=== PATIENT | female | born 1960 | race Caucasian/White ===

== ENCOUNTER 2017-08-28 16:22 | Emergency (ER) | payer BC ==
[2017-08-28 16:49] VITALS: BP 147/78
--- NOTE | 2017-08-28 17:20 | UC ---
Hand/Wrist HPI - HPI Summary HPI Summary: 57 yo female presents with left biceps and forearm pain with movement. She tells me that this pain started about a week ago and has gradually gotten worse. 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 Denies specific injury. Denies numbness or tingling. Has not taken anything OTC for this. - History Of Current Complaint Chief Complaint: UCUpperExtremity Stated Complaint: ARM INJURY WC Time Seen by Provider: 08/28/17 17:19 Hx Obtained From: Patient Onset/Duration: Gradual Onset Severity Initially: Mild Severity Currently: Mild Pain Intensity: 2 Pain Scale Used: 0-10 Numeric - Allergies/Home Medications Allergies/Adverse Reactions: Allergies Allergy/AdvReac Type Severity Reaction Status Date / Time amoxicillin Allergy Vomiting Verified 08/28/17 16:40 Home Medications: Home Medications NK [No Home Medications Reported] 08/28/17 [History Confirmed 08/28/17] PMH/Surg Hx/FS Hx/Imm Hx - Additional Past Medical History Additional PMH: None - Surgical History Surgical History: Yes Surgery Procedure, Year, and Place: tonsils, x2, APPENDECTOMY-2014 - Family History Known Family History: Positive: None - Social History Occupation: Employed Full-time Lives: With Family Alcohol Use: Occasionally Alcohol Amount: 2-3 drinks/ night Substance Use Type: None Smoking Status (MU): Former Smoker When Did the Patient Quit Smoking/Using Tobacco: 2009 - Immunization History Most Recent Influenza Vaccination: 2013 Most Recent Tetanus Shot: "YEARS AGO" Most Recent Pneumonia Vaccination: NONE Review of Systems Constitutional: Negative Skin: Negative Respiratory: Negative Cardiovascular: Negative Neurovascular: Negative Musculoskeletal: Other: - Left biceps pain Neurological: Negative Psychological: Negative All Other Systems Reviewed And Are Negative: Yes Physical Exam - Summary Physical Exam Summary: GENERAL: NAD. WDWN. No pain distress. SKIN: No rashes, sores, lesions, or open wounds. NECK: Supple. Nontender. No lymphadenopathy. CHEST: No accessory muscle use. Breathing comfortably and in no distress. CV: RRR. Without m/r/g. Pulses intact radial and ulnar. MSK: TTP over insertion of biceps tendon at left elbow. 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 No edema or obvious bony deformities. FROM left wrist and thumb. NTTP left wrist or thumb. No laly muscle. NEURO: Alert. Sensations intact hand and all fingers. PSYCH: Age appropriate behavior. Triage Information Reviewed: Yes Vital Signs: Initial Vital Signs Temp 97.5 F 08/28/17 16:44 Pulse 67 08/28/17 16:44 Resp 18 08/28/17 16:44 BP 147/78 08/28/17 16:44 Pulse Ox 100 08/28/17 16:44 Hand/Wrist Course/Dx - Course Course Of Treatment: Suspect biceps tendinitis - advised to apply head, take ibuprofen, and will rx for physical therapy. - Differential Dx/Diagnosis Provider Diagnoses: Biceps tendinitis left Discharge - Sign-Out/Discharge Documenting (check all that apply): Discharge/Admit/Transfer - Discharge Plan Condition: Stable Disposition: HOME Patient Education Materials: Tendinitis (ED) Referrals: Raya Chu MD [Primary Care Provider] - Juan Archer MD [Medical Doctor] - If Needed Additional Instructions: If you develop a fever, shortness of breath, chest pain, new or worsening symptoms - please call your PCP or go to the ED. 1) Rest and Ice your arm as much as possible 2) Please follow up with physical therapy for continue evaluation and treatment 3) May take ibuprofen 600mg every 6-8hours as needed for pain 4) If your symptoms persist or worsen, please call Orthopedics at the number below to schedule a follow up appointment. - Billing Disposition and Condition Condition: STABLE Disposition: HOME
== END 2017-08-28 17:45 | disposition home or self-care (01) ==
LOC: UCEAST 16:22
DX: M75.22 Bicipital tendinitis, left shoulder (principal); Z88.0 Allergy status to penicillin; Z87.891 Personal history of nicotine dependence
CPT/HCPCS: 99212; G0463

== ENCOUNTER 2019-04-04 07:44 | Emergency (ER) | payer BC ==
[2019-04-04 07:56] VITALS: BP 132/73
--- NOTE | 2019-04-04 08:09 | UC ---
Neck Pain HPI - HPI Summary HPI Summary: 59 yo female presents with multiple complaints. She tells me that over the last week she has been having right side and posterior neck pain associated with a headache that wakes her up at night. When she has these headaches, they make her nauseous. Has been happening almost every night for the last week and intermittently throughout the day, but to a lesser degree. She feels better when taking ibuprofen. She does not have any vision changes, dizziness, vomiting, numbness, or tingling. In addition to the above, over the last week she has been feeling more short of breath with activities. She notes that she runs 5 miles everyday, but has not been able and has not felt like it this week. SHIRLEY happens when walking up stairs or hills. She also endorses feeling heart palpitations that seem worse during this time. In addition to the above, she notes that she has "passed out" twice in the last 2 years - both times were while on an airplane. She had a holter monitor placed via her PCP that was normal per pt. Also in addition to the above, over the last year she has had left axilla lymph nodes that come and go in various sizes. Her last mammo was 08/2018 and was normal per pt. No family hx of BRCA, but her son does have a hx of lymphoma. Pt denies any PMHx. Denies chest pain, abdominal pain, vomiting, dysuria, vaginal bleeding/discharge, back pain. No specific injury. - History of Current Complaint Chief Complaint: UCHeadache Stated Complaint: HEADACHE Time Seen by Provider: 04/04/19 08:09 Hx Obtained From: Patient Onset/Duration: Sudden Onset Pain Intensity: 0 - Allergies/Home Medications Allergies/Adverse Reactions: Allergies Allergy/AdvReac Type Severity Reaction Status Date / Time amoxicillin Allergy Vomiting Verified 04/04/19 09:14 Home Medications: Home Medications Ibuprofen 400 mg PO ONCE 04/04/19 [History Confirmed 04/04/19] PMH/Surg Hx/FS Hx/Imm Hx - Additional Past Medical History Additional PMH: None - Surgical History Surgical History: Yes Surgery Procedure, Year, and Place: tonsils, x2, APPENDECTOMY-2014 - Family History Known Family History: Positive: Other Family History: Son with lymphoma. Father with HLD - Social History Occupation: Employed Full-time Lives: With Family Alcohol Use: Daily Alcohol Amount: 2-3 drinks/ night Substance Use Type: None Smoking Status (MU): Former Smoker When Did the Patient Quit Smoking/Using Tobacco: 2009 - Immunization History Most Recent Influenza Vaccination: 2013 Most Recent Tetanus Shot: "YEARS AGO" Most Recent Pneumonia Vaccination: NONE Review of Systems All Other Systems Reviewed And Are Negative: No Constitutional: Positive: Negative Skin: Positive: Negative Eyes: Positive: Negative ENT: Positive: Negative Respiratory: Positive: Shortness Of Breath Cardiovascular: Positive: Palpitations Gastrointestinal: Positive: Nausea Genitourinary: Positive: Negative Motor: Positive: Negative Neurovascular: Positive: Negative Musculoskeletal: Positive: Other: - Neck pain Neurological: Positive: Headache Psychological: Positive: Negative Physical Exam - Summary Physical Exam Summary: GENERAL: NAD. WDWN. No pain distress. SKIN: No rashes, sores, ulcers, masses, lesions. LEFT AXILLA: medial upper arm with firm 1.0-1.5cm nodule. HEENT: Head: AT/NC. Eyes: PERRLA. EOM intact. Conjunctiva clear without inflammation or discharge. Ears: Hearing grossly normal. TMs intact, no bulging, erythema, or edema. Nose: Nasal mucosa pink and moist. NTTP maxillary and frontal sinus. Throat: Posterior oropharynx without exudates, erythema, or tonsillar enlargement. Uvula midline. NECK: Supple. RIGHT SCM TTP and tight compared to left side. Negative spurlings. Neck pain reproduced with turning and tilting head left. Submandibular right 1.0cm firm immobile lymph node. CHEST: CTAB. No r/r/w. No accessory muscle use. Breathing comfortably and in no distress. CV: RRR. Pulses intact. Brisk cap refill. ABDOMEN: Soft. NTTP. Bowel sounds present MSK: FROM in B/L UEs and LEs with symmetric strength. NEURO: A&Ox3. 3 word recall, remote, recent memory, ability to follow 2-step directions, and attention intact. CN: II: Peripheral de jesus intact. Vision normal. III, IV, : EOMI. No nystagmus. PERRLA. V: Sensations intact and symmetric. Opens mouth and clenches teeth. VII: No facial asymmetry. Forehead wrinkles. Grins, shuts eyes, frowns, puffs cheeks. VIII: Hearing intact to finger rub. IX, X: Swallows and coughs. Uvula midline. XI: Shrugs shoulders. Turns head against resistance. XII: No tongue deviation [id number] are intact. Gait with normal base. Romberg: maintains balance, no pronator drift. Normal speech. No facial drooping. PSYCH: Age appropriate behavior. Triage Information Reviewed: Yes Vital Signs: Initial Vital Signs Temp 98.9 F 04/04/19 07:50 Pulse 80 04/04/19 07:50 Resp 18 04/04/19 07:50 BP 132/73 04/04/19 07:50 Pulse Ox 97 04/04/19 07:50 Vital Signs Reviewed: Yes Neck Pain Course/Dx - Course Course Of Treatment: DDx is quite wide. Her exam, relatively low risk fam hx, and no PMHx are reassuring, but given her symptoms I have recommended she go to the ED for further evaluation. She may be experiencing TIAs with the headaches and nausea that wake her from sleep, or a paroxysmal cardiac arrhythmia causing her SOB/ palpitations. Her submandibular and left axillary lymph nodes could support a viral origin, but no evidence on exam or history to support infectious or strong viral cause -- some form of cancer would be the most prudent concern here , especially given her son's lymphoma. Her mammogram was within the last year and was normal per pt, therefore reassuring. I discussed the above with the pt and she is agreeable to go to the ED for a further workup. - Differential Dx/Diagnosis Provider Diagnosis: Headache, Nausea, Palpitations Discharge ED - Sign-Out/Discharge Documenting (check all that apply): Patient Departure All imaging exams completed and their final reports reviewed: No Studies - Discharge Plan Condition: Stable Disposition: HOME-RECOMMEND TO ED Referrals: Raya Chu MD [Primary Care Provider] - Additional Instructions: Please go to the ER for further evaluation of your headaches, nausea, shortness of breath, and palpitations - Billing Disposition and Condition Condition: STABLE Disposition: Home-Recommend to ED
== END 2019-04-04 08:48 | disposition home health service (06) ==
LOC: UCEAST 07:44
DX: R51 Headache (principal); R11.0 Nausea; R00.2 Palpitations; R06.02 Shortness of breath; M54.2 Cervicalgia; Z88.0 Allergy status to penicillin; Z87.891 Personal history of nicotine dependence
CPT/HCPCS: 99212; G0463

== ENCOUNTER 2019-04-04 09:07 | Emergency (ER) | payer BC ==
--- NOTE | 2019-04-04 09:23 | ED ---
Complex/Multi-Sys Presentation - HPI Summary HPI Summary: 59 year old F arriving via private car from [facility] complains of worsening general malaise, palpitations, shortness of breath, right sided neck stiffness, and intermittent headaches x10 days. States that palpitations are increasingly persistent during the evenings x10 days. Has had Holter monitor for her palpitations in the past with unspecified dx. Also c/o shortness of breath x10 days. Is normally very active. Became short of breath walking up a hill yesterday which is unusual for her. Also c/o right sided neck stiffness x10 days. Also c/o intermittent headaches x10 days for which she has been taking ibuprofen with relief. States that headaches often happen in the middle of the night, patient will take ibuprofen and fall back asleep. No acute numbness or weakness in upper extremities. No chest pain, cough, fever. Symptoms rated 1/10 in severity. Symptoms aggravated by taking a deep breath. Symptoms alleviated by ibuprofen. No pertinent PMHx. No hx DVT. No recent travel outside [place] or long distance travel. Surgical hx appendectomy. - History Of Current Complaint Chief Complaint: EDDysrhythmPalp Time Seen by Provider: 04/04/19 09:19 Hx Obtained From: Patient Onset/Duration: Lasting Days - 10, Still Present Timing: Constant, Intermittent, Lasting: Severity Initially: Mild - 1/10 Aggravating Factor(s): taking a deep breath Alleviating Factor(s): ibuprofen - Allergies/Home Medications Allergies/Adverse Reactions: Allergies Allergy/AdvReac Type Severity Reaction Status Date / Time amoxicillin Allergy Vomiting Verified 04/04/19 09:14 PMH/Surg Hx/FS Hx/Imm Hx Endocrine/Hematology History: Denies: Hx Diabetes, Hx Thyroid Disease Cardiovascular History: Denies: Hx Congestive Heart Failure, Hx Hypertension Respiratory History: Denies: Hx Asthma, Hx Chronic Obstructive Pulmonary Disease (COPD) GI History: Denies: Hx Ulcer History: Denies: Hx Renal Disease Musculoskeletal History: Denies: Hx Osteoporosis Sensory History: Denies: Hx Contacts or Glasses Opthamlomology History: Denies: Hx Contacts or Glasses - Cancer History Hx Chemotherapy: No Hx Radiation Therapy: No - Surgical History Surgery Procedure, Year, and Place: tonsils, x2, APPENDECTOMY-2015 Hx Anesthesia Reactions: No Infectious Disease History: No Infectious Disease History: Denies: Hx Hepatitis, Hx Human Immunodeficiency Virus (HIV), Traveled Outside the [place] in Last 30 Days - Family History Known Family History: Positive: None, Non-Contributory - Social History Alcohol Use: Daily Alcohol Amount: 2-3 drinks/ night Substance Use Type: Reports: None Smoking Status (MU): Former Smoker Review of Systems Positive: Other - general malaise. Negative: Fever Positive: Palpitations. Negative: Chest Pain Positive: Shortness Of Breath. Negative: Cough Positive: Other - right sided neck stiffnses Positive: Headache. Negative: Weakness, Numbness All Other Systems Reviewed And Are Negative: Yes Physical Exam - Summary Physical Exam Summary: Constitutional: Well-developed, Well-nourished, Alert. (-) Distressed Skin: Warm, Dry HENT: Normocephalic; Atraumatic Eyes: Conjunctiva normal Neck: Musculoskeletal ROM normal neck. (-) JVD, (-) Stridor, (-) Nuchal rigidity. R sided paraspinal tenderness Cardio: Rhythm regular, rate normal, Heart sounds normal; Intact distal pulses; Radial pulses are 2+ and symmetric. (-) Murmur Pulmonary/Chest wall: bilateral LL rhonchi. Effort normal. (-) Respiratory distress, (-) Wheezes, (-) Rales Abd: Soft, (-) tenderness, (-) Distension, (-) Guarding, (-) Rebound Musculoskeletal: (-) Edema Lymph: (-) Cervical adenopathy Neuro: Alert, Oriented x3 Psych: Mood and affect Normal Triage Information Reviewed: Yes Vital Signs On Initial Exam: Initial Vitals Temp Pulse Resp BP Pulse Ox 98.5 F 88 18 179/90 95 04/04/19 09:14 04/04/19 09:14 04/04/19 09:14 04/04/19 09:14 04/04/19 09:14 Vital Signs Reviewed: Yes Procedures - Sedation Patient Received Moderate/Deep Sedation with Procedure: No Diagnostics - Vital Signs Vital Signs Temp Pulse Resp BP Pulse Ox 04/04/19 09:14 98.5 F 88 18 179/90 95 - Laboratory Result Diagrams: 04/04/19 09:30 04/04/19 09:30 Lab Statement: Any lab studies that have been ordered have been reviewed, and results considered in the medical decision making process. - Radiology CXR Radiology Interpretation Completed By: Radiologist Summary of Radiographic Findings: BILATERAL CONFLUENT LOWER LOBE CONFLUENT INFILTRATES MOST CONSISTENT WITH PNEUMONIA. IN ADDITION THERE ARE PATCHY NODULAR INFILTRATES IN THE LEFT LUNG LIKELY RELATED TO THE SAME PROCESS ALTHOUGH NEOPLASTIC DISEASE CANNOT BE EXCLUDED. THEREFORE RECOMMEND FOLLOW-UP CHEST X-RAYS TO RESOLUTION. ED PHYSICIAN HAS REVIEWED THIS REPORT. - CT BRAIN CT Interpretation Completed By: Radiologist Summary of CT Findings: NO EVIDENCE FOR ACUTE INTRACRANIAL ABNORMALITY. ED PHYSICIAN HAS REVIEWED THIS REPORT. - EKG 0911 Cardiac Rate: NL - 88 BPM EKG Rhythm: Sinus Rhythm Summary of EKG Findings: An EKG at 09:11 reveals normal sinus rhythm 88 BPM. T wave inversions in V1 which are similar for 2015. ED physician has reviewed and interpreted this EKG. Re-Evaluation - Re-Evaluation First Eval Re-Evaluation Time: 10:39 Comment: d/w patient CXR findings, need for f/u XR. Complex Multi-Symp Course/Dx Course Of Treatment: 59 y/o F w hx palpitations p/w multiple complaints. - patient reporting increasing palpitations, has had a Holter monitor the past was negative. We'll check lites, CBC to rule out anemia, EKG sinus. - Reports dyspnea. Check a chest x-ray, d-dimer to rule out PE as patient is well's low risk. - Reporting increase in headaches at night, patient states is awake woken her from sleep, no trauma or infectious symptoms. We'll check a head CT. Headache was not sudden onset or worst of life, do not suspect subarachnoid hemorrhage. No URI symptoms or infectious symptoms to suggest meningitis. Patient does have some mild right-sided neck pain. No midline tenderness. Head CT done shows no abnormalities. - Age-adjusted d dimer: 261 (cutoff 590). Application of age-adjusted d-dimer is used for patient's age 50 or older with non-high clinical probability of PE. - CXR w pna, given azithromycin. CURB 65 score 0 - Diagnoses Provider Diagnoses: Pneumonia, Headache Discharge ED - Sign-Out/Discharge Documenting (check all that apply): Patient Departure - Discharge Plan Condition: Stable Disposition: HOME Prescriptions: Azithromyxin HANY (NF) [Z-Hany (Zithromax) 250 mg tabs #6] 2 tab PO .TODAY, THEN 1 DAILY #6 tab Patient Education Materials: Community Acquired Pneumonia (ED) Referrals: Raya Chu MD [Primary Care Provider] - Additional Instructions: You were seen in the emergency department for headache and trouble breathing. Your head CT didn't show any abnormalities Your chest x-ray showed pneumonia and possible small nodules. Please take azithromycin for 5 days. Please follow up with her primary care doctor for follow-up chest x-ray. If any studies were not completed at the time of discharge you will be called with the relevant results. Please follow up with your primary care doctor in next 2-3 days and return to emergency department for worsening headaches, trouble breathing, chest pain or concerning symptoms. It was a pleasure taking care of you today. - Billing Disposition and Condition Condition: STABLE Disposition: Home - Attestation Statements Document Initiated by Tania: Yes Documenting Scribe: Ivana Sheikh Provider For Whom Tania is Documenting (Include Credential): Charlotte Gallegos MD Scribe Attestation: Ivana Rees, scribed for Charlotte Gallegos MD on 04/04/19 at 1041. Scribe Documentation Reviewed: Yes Provider Attestation: The documentation as recorded by the Ivana minor accurately reflects the service I personally performed and the decisions made by , Charlotte Gallegos MD Status of Scribe Document: Viewed
[2019-04-04 09:41] LABS: ABS Basophils 0.1 10^3/ul (0-0.2); ABS Eosinophils 0.2 10^3/ul (0-0.6); ABS Lymphocytes 1.1 10^3/ul (1.0-4.8); ABS Monocytes 0.6 10^3/ul (0-0.8); Hematocrit 41 % (35-47); Hemoglobin 13.9 g/dL (12.0-16.0); Lymphocyte % 18.2 %; Mean Corpuscular HGB Conc 34 g/dL (31-36); Mean Corpuscular Hemoglobin 31 pg (27-31); Mean Corpuscular Volume 91 fL (80-97); Mean Platelet Volume 7.5 fL (7.4-10.4); Nucleated Red Blood Cells % 0.1; Platelet Count 322 10^3/uL (150-450); Red Blood Count 4.47 10^6 /uL (3.70-4.87); Red Cell Distribution Width 12 % (10-15)
[2019-04-04 09:56] LABS: Albumin 4.2 g/dL (3.2-5.2); Albumin/Globulin Ratio 1.1 (1-3); BUN/Creatinine Ratio 15.1 (8-20); Calcium 10.2 mg/dL (8.6-10.3); EGFR African American 98.7 (>60); EGFR Non-African American 81.6 (>60); Globulin 3.7 g/dL (2-4); Magnesium 2.1 mg/dL (1.9-2.7); Total Bilirubin 0.5 mg/dL (0.2-1.0); Total Protein 7.9 g/dL (6.4-8.9)
[2019-04-04 10:25] LABS: TSH (Thyroid Stimulating Horm) 1.92 mcIU/mL (0.34-5.60)
[2019-04-04 10:27] LABS: Free T4 0.94 ng/dL (0.61-1.12)
[2019-04-04 11:00] VITALS: BP 154/87
== END 2019-04-04 11:02 | disposition home or self-care (01) ==
LOC: ED 09:07
DX: J18.9 Pneumonia, unspecified organism (principal); R51 Headache; Z87.891 Personal history of nicotine dependence; Z90.89 Acquired absence of other organs; Z88.1 Allergy status to other antibiotic agents
CPT/HCPCS: 36415; 70450; 71046; 80053; 83735; 84439; 84443; 84484; 85025; 85379; 93005; 99283

== ENCOUNTER 2019-04-25 16:36 | Inpatient (IN) | payer BC ==
--- OUTSIDE RECORDS SUMMARY | 2019-04-25 16:49 | XMS REPORT | Continuity of Care Document ---
:1960 External Reference #:[id number] Author Name Oscar Fofana M.D. (transmitted by agent of provider Miriam Ruff ) Address [address] [place] [address] Care Team Providers Name Role Phone Raya Chu MD - Family Care Team Information [employer] [phone] Medicine Problems Active Problems Provider Date Current tear of lateral cartilage AND/OR Brodie aSleh M.D. Onset: 2017 meniscus of knee Derangement of knee Brodie Saleh M.D. Onset: 07/15/2017 Social History Type Date Description Comments Sex Unknown ETOH Use Occasionally consumes alcohol Tobacco Use Start: Unknown End: Patient is a former smoker Unknown Smoking Status Reviewed: 04/25/19 Patient is a former smoker Exercise Type/Frequency Exercises regularly Allergies, Adverse Reactions, Alerts Description No Known Drug Allergies Medications Active Medications SIG Qnty Indications Ordering Provider Date Atovaquone TK 5 ML PO bid Unknown 750mg/5ML For 10 Days Suspension Albuterol Sulfate HFA Inl 2 PFS PO Up Unknown To qid 108(90Base) mcg/Act Aerosol Azithromycin TK 1 T PO D For Unknown 500mg Tablets 7 Days Probiotic 2 by mouth once Unknown Capsules daily Calcium + D3 1 by mouth every Unknown [id number]-Nxcl day Tablets Ibuprofen 200 400-600mg every Unknown 200mg Tablets 6 hours as needed for pain. Immunizations Description No Information Available Vital Signs Date Vital Result Comment 04/25/2019 3:28pm Height 60 inches 5'0" Weight 102.12 lb Heart Rate 103 /min BP Systolic Sitting 130 mmHg BP Diastolic Sitting 70 mmHg Respiratory Rate 14 /min Body Temperature 102.4 F BMI (Body Mass Index) 19.9 kg/m2 07/15/2017 9:52am Height 60 inches 5'0" Weight 105.00 lb BP Systolic 114 mmHg BP Diastolic 64 mmHg Respiratory Rate 18 /min Body Temperature 98.0 F Pain Level 0 BMI (Body Mass Index) 20.5 kg/m2 Results Description No Information Available Procedures Description No Information Available Medical Devices Description No Information Available Encounters Description No Information Available Assessments Date Code Description Provider 04/25/2019 R50.9 Fever, unspecified Oscar Fofana M.D. Plan of Treatment Future Appointment(s):05/09/2019 4:00 pm - Oscar Fofana M.D. at [facility]/2020 - Oscar Fofana M.D.R50.9 Fever , unspecifiedComments:progressive fever and pulmonary infiltrates, O2 Sat 90% RA ; hospital admission for expedited workup including CT chest, BC, sputum Cx, urine Histo Ag, AFB and fungal studiesFollow up:2 weeks Functional Status Description No Information Available Mental Status Description No Information Available Referrals Description No Information Available
--- NOTE | 2019-04-25 17:59 | ED ---
HPI Cardiac - HPI Summary HPI Summary: Pt is a 59 y/o F presenting to the ED with a chief complaint of pneumonia. Pt states shes had pneumonia for the past 3-4 weeks and it has worsened despite being on different antibiotics, including a Z-pack, Doxycycline, and currently Azithromycin. She saw Dr. Kiran today who instructed her to come here. She reports fever, dry cough, ear ache, general myalgias, and nausea. She denies abd pain, diarrhea, or vomiting. - History of Current Complaint Chief Complaint: EDUpperRespComplaint Stated Complaint: FEVER/SOB/DIZZINESS PER PT Time Seen by Provider: 04/25/19 17:49 Hx Obtained From: Patient Onset/Duration: Started Weeks Ago, Still Present Timing: Constant, Lasting Weeks Initial Severity: Mild Current Severity: None Pain Intensity: 0 Pain Scale Used: 0-10 Numeric Aggravating Factor(s): Nothing Alleviating Factor(s): Nothing Associated Signs and Symptoms: Positive: Fever, Nausea, Cough. Negative: Abdominal Pain, Vomiting - Allergy/Home Medications Allergies/Adverse Reactions: Allergies Allergy/AdvReac Type Severity Reaction Status Date / Time amoxicillin Allergy Vomiting Verified 04/25/19 16:42 Home Medications: Home Medications Albuterol HFA INHALER* [Ventolin HFA Inhaler*] 2 puff INH Q6H PRN 04/25/19 [ History Confirmed 04/25/19] Atovaquone* [Mepron*] 5 ml PO BID 04/25/19 [History Confirmed 04/25/19] PMH/Surg Hx/FS Hx/Imm Hx Previously Healthy: Yes Endocrine/Hematology History: Denies: Hx Diabetes, Hx Thyroid Disease Cardiovascular History: Denies: Hx Congestive Heart Failure, Hx Hypertension Respiratory History: Denies: Hx Asthma, Hx Chronic Obstructive Pulmonary Disease (COPD) GI History: Denies: Hx Ulcer History: Denies: Hx Renal Disease Musculoskeletal History: Denies: Hx Osteoporosis Sensory History: Denies: Hx Contacts or Glasses Opthamlomology History: Denies: Hx Contacts or Glasses - Cancer History Hx Chemotherapy: No Hx Radiation Therapy: No - Surgical History Surgery Procedure, Year, and Place: tonsils, x2, APPENDECTOMY-2015 Hx Anesthesia Reactions: No Infectious Disease History: No Infectious Disease History: Denies: Hx Hepatitis, Hx Human Immunodeficiency Virus (HIV), Traveled Outside the [place] in Last 30 Days - Family History Known Family History: Positive: Other - son had hodgkin's lymphoma - Social History Alcohol Use: Daily Alcohol Amount: 2-3 drinks/ night Hx Substance Use: No Substance Use Type: Reports: None Hx Tobacco Use: No Smoking Status (MU): Former Smoker Review of Systems Positive: Fever Positive: Ear Ache Positive: Cough Positive: Nausea. Negative: Abdominal Pain, Vomiting, Diarrhea Positive: Myalgia All Other Systems Reviewed And Are Negative: Yes Physical Exam - Summary Physical Exam Summary: VITAL SIGNS: Reviewed. GENERAL: Patient is a well-developed and nourished female who is lying comfortable in the stretcher. Patient is not in any acute respiratory distress. HEAD AND FACE: No signs of trauma. No ecchymosis, hematomas or skull depressions. No sinus tenderness.. EYES: PERRLA, EOMI x 2, No injected conjunctiva, no nystagmus. EARS: Hearing grossly intact. Ear canals and tympanic membranes are within normal limits. MOUTH: Oropharynx within normal limits. NECK: Supple, trachea is midline, no adenopathy, no JVD, no carotid bruit, no c- spine tenderness, neck with full ROM. CHEST: Symmetric, no tenderness at palpation. LUNGS: Crackles in lungs bilaterally. CVS: Regular rate and rhythm, S1 and S2 present, no murmurs or gallops appreciated. ABDOMEN: Soft, non-tender. No signs of distention. No rebound, no guarding, and no masses palpated. Bowel sounds are normal. EXTREMITIES: FROM in all major joints, no edema, no cyanosis or clubbing. NEURO: Alert and oriented x 3. No acute neurological deficits. Speech is normal and follows commands. SKIN: Dry and warm. Triage Information Reviewed: Yes Vital Signs On Initial Exam: Initial Vitals Temp Pulse Resp BP Pulse Ox 98.9 F 100 17 135/80 92 04/25/19 16:37 04/25/19 16:37 04/25/19 16:37 04/25/19 16:37 04/25/19 16:37 Vital Signs Reviewed: Yes Procedures - Sedation Patient Received Moderate/Deep Sedation with Procedure: No Diagnostics - Vital Signs Vital Signs Temp Pulse Resp BP Pulse Ox 04/25/19 16:37 98.9 F 100 17 135/80 92 - Laboratory Result Diagrams: 04/25/19 18:40 04/25/19 18:40 Lab Statement: Any lab studies that have been ordered have been reviewed, and results considered in the medical decision making process. - CT Chest CT CT Interpretation Completed By: Radiologist Summary of CT Findings: 1. There is bilateral airspace opacity with air bronchograms as well as peripheral patchy regions and ring shaped opacities in the bilateral lungs suspicious for pneumonitis, possible atypical pneumonitis. Differential diagnosis includes atypical etiology such as cryptogenic organizing pneumonia. 2. There is mild mediastinal lymphadenopathy. ED physician has reviewed this report. - EKG 1804 Cardiac Rate: NL - 91bpm EKG Rhythm: Sinus Rhythm ST Segment: Normal Ectopy: None Summary of EKG Findings: EKG at 1804 shows NSR at 91bpm with no ST elevations and nml axis. Dr. Perez has reviewed and interpreted this EKG. Disposition - Course Assessment/Plan: Pt is a 59 y/o F presenting to the ED with a chief complaint of pneumonia. Pt states shes had pneumonia for the past 3-4 weeks and it has worsened despite being on different antibiotics, including a Z-pack, Doxycycline , and currently Azithromycin. She saw Dr. Kiran today who instructed her to come here. She reports fever, dry cough, ear ache, general myalgias, and nausea. She denies abd pain, diarrhea, or vomiting. Hospital recommendations from Dr. Musa I ordered a chest CT without contrast and started the patient given Rocephin. Chest CT IMPRESSION: 1. There is bilateral airspace opacities with air bronchograms as well as. peripheral patchy regions and ring shaped opacities in the bilateral lungs. suspicious for pneumonitis, possible atypical pneumonitis. Differential. diagnosis includes atypical etiology such as cryptogenic organizing pneumonia. 2. There is mild mediastinal lymphadenopathy. I discuss my physical exam and test results with Dr. Johansen from the hospitalist services and she agrees to admit the patient to her services. The patient is hemodynamically stable alert and oriented x 3. - Differential Dx - Cardiopulmonary Differential Diagnoses - Cardiopulmonary: Bronchitis, Influenza, Laryngitis, Lower Resp Infection - Diagnoses Provider Diagnoses: Pneumonia - Physician Notifications Discussed Care Of Patient With: Cristina Johansen Time Discussed With Above Provider: 19:43 Instructed by Provider To: Admit As Inpatient Discharge ED - Sign-Out/Discharge Documenting (check all that apply): Patient Departure - Discharge Plan Condition: Stable Disposition: ADMITTED TO [facility] Referrals: Tanna Castillo MD [Primary Care Provider] - - Billing Disposition and Condition Condition: STABLE Disposition: Admitted to [facility] - Attestation Statements Document Initiated by Raymundoibchyna: Yes Documenting Scribe: Vandana Miles Provider For Whom Tania is Documenting (Include Credential): Jv Perez MD. Scribe Attestation: Vandana Rees, scribed for Jv Perez MD. on 04/25/19 at 2041. Scribe Documentation Reviewed: Yes Provider Attestation: The documentation as recorded by the raymundoibchyna, Vandana Miles accurately reflects the service I personally performed and the decisions made by , Jv Perez MD. Status of Scribe Document: Viewed
[2019-04-25] MEDS ORDERED: cefTRIAXone(*) 1 GM in NS 0.9% 50 ML* 50 ML IVPB ONE (18:27)
[2019-04-25 18:37] LABS: Influenza A Molecular NEGATIVE (Negative); Influenza B Molecular NEGATIVE (Negative)
[2019-04-25 18:38] LABS: Urine Appearance Clear; Urine Bilirubin Negative (Negative); Urine Blood Negative (Negative); Urine Color Yellow; Urine Glucose Negative (Negative); Urine Ketones 1+ (Negative); Urine Nitrite Negative (Negative); Urine Protein Negative (Negative); Urine Specific Gravity 1.011 (1.010-1.030); Urine Urobilinogen Negative (Negative)
[2019-04-25] MEDS ORDERED: cefTRIAXone(*) 1 GM ADVAN/BAG ONE (18:41)
[2019-04-25 18:57] LABS: ABS Eosinophils 0.4 10^3/ul (0-0.6); ABS Lymphocytes 0.9 10^3/ul (1.0-4.8); ABS Monocytes 0.6 10^3/ul (0-0.8); ABS Neutrophils 7.4 10^3/ul (1.5-7.7); Eosinophil % 3.9 %; Hematocrit 37 % (35-47); Hemoglobin 12.6 g/dL (12.0-16.0); Lymphocyte % 9.7 %; Mean Corpuscular HGB Conc 34 g/dL (31-36); Mean Corpuscular Hemoglobin 30 pg (27-31); Mean Corpuscular Volume 88 fL (80-97); Mean Platelet Volume 7.9 fL (7.4-10.4); Platelet Count 374 10^3/uL (150-450); Red Blood Count 4.21 10^6 /uL (3.70-4.87); Red Cell Distribution Width 12 % (10-15); White Blood Count 9.3 10^3/uL (3.5-10.8)
[2019-04-25 19:15] LABS: Albumin 3.4 g/dL (3.2-5.2); BUN/Creatinine Ratio 15.9 (8-20); C Reactive Protein 220.1 mg/L (<8.01); EGFR African American 105.4 (>60); EGFR Non-African American 87.1 (>60); Globulin 3.4 g/dL (2-4); Potassium 3.9 mmol/L (3.5-5.0); Total Bilirubin 0.4 mg/dL (0.2-1.0); Total Protein 6.8 g/dL (6.4-8.9)
[2019-04-25 19:16] LABS: Troponin I 0.01 ng/mL (<0.03)
[2019-04-25 19:23] LABS: Activated Partial Thrombo Time 32.9 seconds (26.0-38.0); Fibrinogen 888.5 mg/dL (110.8-404.3); INR 1.23 (0.82-1.09)
[2019-04-25] MEDS ORDERED: Acetaminophen TAB* 325 MG PO PRN (21:13)
[2019-04-25] MEDS ORDERED: Albuterol HFA INHALER* 8 gm MDI INH PRN (21:16)
[2019-04-25 21:39] LABS: Erythrocyte Sed Rate > 120 mm/Hr (0-29)
[2019-04-25 22:34] LABS: HIV 4th Generation Nonreactive (Nonreactive)
--- NOTE | 2019-04-25 23:42 | HP ---
CC: Dr. Tanna Castillo * HISTORY AND PHYSICAL: DATE OF ADMISSION: 04/25/19 PRIMARY CARE PROVIDER: Tanna Castillo MD ATTENDING PHYSICIAN: Dr. Cristina Johansen * (dictated by RAJINDER Reeder). CHIEF COMPLAINT: Pneumonia. HISTORY OF PRESENT ILLNESS: Ms. Power is a 59-year-old female with a past medical history of Raynaud's, who presented to the ER today with complaints of persistent pneumonia. The patient states that approximately 03/28/19, she started to have palpitations for 4 to 5 days that were worse at night. These subsided and she was left feeling "off" with general malaise. The patient states she typically runs 5 miles per day and does 40 pushups per day, but found herself unable to walk up of a hill without shortness of breath, which was very atypical for her. She then went to her primary care provider on and was diagnosed with pneumonia and prescribed azithromycin for which she completed a 5 day course. After completing the course with no improvement in symptoms, the patient returned to her primary care provider and was tested for Lyme disease and prescribed doxycycline for 2 weeks' duration, which she completed. Her Lyme test returned negative and therefore her primary care provider placed her back on azithromycin 500 mg with the addition of atovaquone. Today, she is on day 4 of this course and she continues to feel poorly with fever T-max of 102.4, chills, sweats, shortness of breath, which is worse with exertion. She reports cough with deep breathing that is mostly dry. She reports a chest tightness with deep breathing. She has had a 5 pound weight loss in 2 weeks, which she attributes to poor appetite and poor p.o. intake; she reports that her taste is "off." She reports lightheadedness at times as well as bilateral leg weakness, aching, stiff neck, and sore left shoulder. She also reports headache. The patient reports recent travel to [place] in September, [place] in December, and travel to [place] in February. No international travel. In the ER, the patient received a full workup including laboratory data. Her CBC was without gross abnormality including negative for leukocytosis. She has a mild hyponatremia, mildly elevated glucose and a C-reactive protein of 220. 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 The hospitalist team was asked to evaluate the patient for admission. PAST MEDICAL HISTORY: Raynaud's. PAST SURGICAL HISTORY: Appendectomy and tonsillectomy, x2. HOME MEDICATIONS: 1. Albuterol HFA inhaler 2 puff inhalation q.6 hours p.r.n. 2. Atovaquone 5 mL p.o. b.i.d. 3. Azithromycin Z-RADHA. DRUG ALLERGIES: AMOXICILLIN. FAMILY HISTORY: The patient has 1 son with diabetes, sarcoidosis, Hodgkin's lymphoma, and a reported autoimmune disease that occurred after chemotherapy for his lymphoma. Father had diabetes type 2. Maternal grandmother with diabetes type 2. No family history of lung disease, cardiovascular disease or CVA. SOCIAL HISTORY: The patient quit smoking approximately 1 year ago, prior to that she smoked 5 to 6 years approximately less than a half pack per day. She drinks 3 alcoholic beverages per night. She is with 2 children. She lives with her spouse. 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 She is relatively healthy and reportedly runs 5 miles per day and does 40 pushups per day. In the event that she is unable to make her own medical decision, she has appointed her Matthew Montes to be her surrogate decision maker. REVIEW OF SYSTEMS: A 14-point review of systems has been performed and all the pertinent positives and negatives are in the HPI. All other systems are negative. PHYSICAL EXAMINATION GENERAL: Ms. Power is a well-developed, well-nourished, average weight, healthy appearing middle-aged white female, who is sitting up in bed. She appears to be in no acute distress. She is breathing comfortably on room air. HEENT: PERRL. EOMI. Visual de jesus are grossly intact. Sclerae are nonicteric without injection. Hearing is grossly intact. Oral mucous membranes are moist. There are no lesions. The pharynx is clear without erythema or exudate. Palate elevates symmetrically. The tongue is at midline. PULMONARY: Symmetrical chest expansion without use of accessory muscles. There are right lower lobe coarse rales otherwise lung de jesus are clear without rhonchi or wheeze. CARDIOVASCULAR: Regular rate and rhythm with S1, S2 present. There are no murmurs, rubs, clicks or gallops. There is no JVD or peripheral edema. ABDOMEN: Flat. Bowel sounds in all quadrants. Soft with mild tenderness to palpation at the left lower quadrant, otherwise nontender. MUSCULOSKELETAL: Full range of motion without pain or deformities. NEURO: The patient is awake. She is alert and oriented x3 with cranial nerves II through XII are grossly intact. She is able to move all of her extremities with a motor strength 5/5 bilaterally in the upper and lower extremities. Power Lineman Technician strength is equal. DIAGNOSTIC STUDIES/LAB DATA: WBC 9.3, hemoglobin 12.6, hematocrit 37, MCV 88. Sodium 131, chloride 95, potassium 3.9, CO2 of 27, BUN 11, creatinine 0.69, glucose 119, lactic 0.9, CRP 220.10. Chest CT, impression: There is bilateral airspace opacity with air bronchograms as well as peripheral patchy regions and ring-shaped opacities in the bilateral lung suspicious for pneumonitis, possible atypical pneumonitis. Differential diagnosis include atypical etiology such as cryptogenic organizing pneumonia. There is mild mediastinal lymphadenopathy. ASSESSMENT AND PLAN: Ms. Power is a 59-year-old female with no significant past medical history, who presented to the ER today with complaints of persistent pneumonia despite multiple courses of antibiotics for the last approximately 4 weeks. She will be admitted for: 1. Persistent pneumonia. The patient has had pneumonia symptoms for approximately 1 month and continues to have cough, fever, chills, sweats, some mild weight loss, despite 2 courses of azithromycin, 2-week course of doxycycline, and 4 days of atovaquone. The patient reports recent travel to [place] and [place]. She will be admitted and placed on ceftriaxone. Dr. Kiran, Infectious Disease, has been consulted. The patient may benefit from a Pulmonology consult as well. Urine will be sent for histoplasmosis, legionella, and Strep pneumo. HIV testing will be performed. Suspicion is that this is infectious in nature due to the patient's elevated CRP of 220. A procalcitonin has been added on today's labs. We will discontinue the patient' s atovaquone and azithromycin. 2. DVT prophylaxis. According to DVT Risk Assessment, the patient's score is 1 , placing her at low risk. She will be started on Lovenox. 3. Code status. Full code. TIME SPENT: Approximately 65 minutes was spent on this admission, greater than half that time was spent [id number] with the patient and her , obtaining history, performing physical, and reviewing the plan. This case has been discussed with my attending Dr. Johansen, who is in agreement with the plan of care. RAJINDER ASKEW [id number]/[facility] #: [id number] VICK
[2019-04-26] MEDS: Enoxaparin(*) 40 MG/0.4 ML SYR SUBCUT SCH ×2 (00:04→21:16)
[2019-04-26 05:46] LABS: Hematocrit 35 % (35-47); Hemoglobin 11.8 g/dL (12.0-16.0); Mean Corpuscular HGB Conc 34 g/dL (31-36); Mean Corpuscular Hemoglobin 30 pg (27-31); Mean Corpuscular Volume 88 fL (80-97); Mean Platelet Volume 7.6 fL (7.4-10.4); Platelet Count 345 10^3/uL (150-450); Red Blood Count 3.93 10^6 /uL (3.70-4.87); Red Cell Distribution Width 12 % (10-15); White Blood Count 8.2 10^3/uL (3.5-10.8)
[2019-04-26 06:08] LABS: ABS Eosinophils 0.6 10^3/ul (0-0.6); ABS Lymphocytes 1.3 10^3/ul (1.0-4.8); ABS Monocytes 0.7 10^3/ul (0-0.8); ABS Neutrophils 5.7 10^3/ul (1.5-7.7); Eosinophil % 6.9 %; Lymphocyte % 15.8 %
[2019-04-26 06:11] LABS: BUN/Creatinine Ratio 17.6 (8-20); Calcium 8.7 mg/dL (8.6-10.3); EGFR African American 107.2 (>60); EGFR Non-African American 88.6 (>60); Potassium 3.9 mmol/L (3.5-5.0)
[2019-04-26] MEDS ORDERED: Influenza VAC *QUAD* 2019-20* 0.5 ML SYRINGE IM ONE (09:00)
[2019-04-26] MEDS ORDERED: NS 0.9% 1000 ML** 1,000 ML IV ONE ×2 (09:55→11:28)
--- NOTE | 2019-04-26 12:24 | ECHO ---
*[facility]* [place] [address] Fax #: [phone] Transthoracic Echocardiogram Patient: Mariela Power : 1960 Study Date: 04/26/2019 Age: 59 Gender: F HR: 86 bpm Height: 60 in /152.4 cm BSA: 1.41 m^2 Weight: 103.8 lb /47.2 kg BMI: 20.3 kg/m^2 *Journalists And Other Writers: * Gema Alonzo RD *Referring Physician: * Etser Rios *Reading Physician: * Jean Morrow MD Indications: SOB. History: Palpitations. Raynaud's Risk factors: Former tobacco use. Conclusions Summary: - Left ventricle: Systolic function is normal. The estimated ejection fraction is 60-65%. Wall motion is normal; there are no regional wall motion abnormalities. - Mitral valve: There is trace regurgitation. - Aortic valve: There is no evidence of stenosis. - Tricuspid valve: There is trace to mild regurgitation. - Pulmonary arteries: Systolic pressure is within the normal range. Study data: Transthoracic echocardiogram. Procedure: Transthoracic echocardiography was performed. Image quality was good. Complete 2D, spectral Doppler, and color flow Doppler. Location: Bedside. Patient status: Inpatient. Patient room number: 420-01. Rhythm: Normal sinus rhythm with PAC's. Findings Left ventricle: The cavity size is normal. Wall thickness is normal. Systolic function is normal. The estimated ejection fraction is 60-65%. Wall motion is normal; there are no regional wall motion abnormalities. Left ventricular diastolic function parameters are normal. Right ventricle: The cavity size is normal. Systolic function is normal. Systolic pressure is within the normal range. Left atrium: The atrium is mildly dilated. Right atrium: The atrium is normal in size. Mitral valve: The leaflets are mildly thickened. There is no evidence of stenosis. There is trace regurgitation. Aortic valve: The valve is trileaflet. The leaflets are mildly thickened. There is no evidence of stenosis. There is trace regurgitation. Tricuspid valve: The leaflets are normal thickness. There is no evidence of stenosis. There is trace to mild regurgitation. Pulmonic valve: Poorly visualized. The leaflets are normal thickness. There is no evidence of stenosis. There is trace regurgitation. Aorta: Aortic root: The aortic root is appears normal. Ascending aorta: The ascending aorta is appears normal. Aortic arch: The aortic arch is appears normal. Pericardium: There is no significant pericardial effusion. Pulmonary arteries: The main pulmonary artery is normal-sized. Systolic pressure is within the normal range. Systemic veins: Inferior vena cava: The vessel is normal in size. There is (>= 50%) respiratory change in the IVC dimension. Measurements Left ventricle Value Ref Aortic valve Value Ref JUAN, LAX 3.8 cm 3.8 - 5.2 Fredi diam, ED 1.6 cm ----- ESD, LAX 2.6 cm 2.2 - 3.5 Peak v, S 1.64 m/sec ----- FS, LAX 32 % 27 - 45 VTI, S 31.4 cm ----- PW, ED, LAX 0.8 cm 0.6 - 0.9 Mean grad, S 6.0 mm Hg ----- FS 32 % 27 - 45 Peak grad, S 11.0 mm Hg ----- PW, ED 0.8 cm 0.6 - 0.9 LVOT/AV, VTI ratio 0.76 ----- E', lat fredi, TDI 11.9 cm/sec >=10.0 E/e', lat fredi, 8 Mitral valve Value Ref TDI Peak E 0.93 m/sec ----- E', med fredi, TDI 10.9 cm/sec >=7.0 Peak A 0.62 m/sec --- -- E/e', med fredi, 8 Decel time 187 ms ----- TDI Peak grad, D 3.4 mm Hg ----- E', avg, TDI 11.4 cm/sec Peak E/A ratio 1.5 ----- E/e', avg, TDI 8 <=14 Pulmonic valve Value Ref LVOT Value Ref Peak v, S 1.44 m/sec ----- Peak maggie, S 1.29 m/sec Peak grad, S 8.0 mm Hg ----- VTI, S 24.0 cm Peak grad, S 7 mm Hg Tricuspid valve Value Ref Mean grad, S 4 mm Hg TR peak v 2.4 m/sec <=2.8 Peak RV-RA grad, S 23 mm Hg ----- Ventricular septum Value Ref IVS, ED 0.9 cm 0.6 - 0.9 Aortic root Value Ref Root diam 2.5 cm <3.7 Right ventricle Value Ref JUAN, LAX 2.8 cm Ascending aorta Value Ref JUAN minor ax, A4C 3.2 cm 1.9 - 3.5 AAo AP diam, S 2.4 cm ----- mid Pressure, S 26 mm Hg Aortic arch Value Ref Arch diam 1.7 cm ----- Left atrium Value Ref AP dim, ES 3.00 cm 2.70 - Decending aorta Value Ref 3.80 Emely peak maggie 1.09 m/sec ----- ML dim, A4C 4.4 cm SI dim, A4C 4.5 cm Pulmonary artery Value Ref Vol/bsa, ES, 1-p 34 ml/m^2 11 - 40 Pressure, S 18.0 mm Hg ----- A4C Vol/bsa, ES, A/L (H) 35 ml/m^2 16 - 34 Inferior vena cava Value Ref Diam 1.2 cm ----- Right atrium Value Ref SI dim, ES 4.5 cm 3.4 - 5.3 ML dim, ES, A4C 3.2 cm 2.6 - 4.4 Estimated RAP 3 mm Hg Legend: (L) and (H) marcelo values outside specified reference range. Prepared and electronically signed by Jean Morrow MD 04/26/2019 12:23
--- NOTE | 2019-04-26 12:27 | PN ---
Subjective Date of Service: 04/26/19 Interval History: Ms. Power states she has mild SOB today and feels fine as long as she does not take a deep breath, which causes chest tightness. She continues to have non- productive cough, general malaise. She denies ill contacts prior to beginning of illness, although reports exposure appx 2 weeks into illness. She reports that last night was first night without night sweats in appx 1.5 weeks; denies fever. No other complaints today. Objective Active Medications: Acetaminophen (Tylenol Tab*) 650 mg PO Q4H PRN PRN Reason: mild to moderate pain Albuterol (Ventolin Hfa Inhaler*) 2 puff INH Q6H PRN PRN Reason: SHORTNESS OF BREATH Enoxaparin Sodium (Lovenox(*)) 40 mg SUBCUT Q24H JOSE LUIS Last Admin: 04/26/19 00:04 Dose: 40 mg Ceftriaxone Sodium 1 gm/ (Sodium Chloride) 50 mls @ 100 mls/hr IVPB Q24H JOSE LUIS Sodium Chloride (Ns 0.9% 1000 Ml) 1,000 mls @ 1,000 mls/hr IV .PER RATE ONE Stop: 04/26/19 12:27 Last Admin: 04/26/19 11:45 Dose: 1,000 mls/hr Vital Signs: Temp Pulse Resp BP Pulse Ox 97.9 F 87 20 102/55 93 04/26/19 15:19 04/26/19 15:19 04/26/19 15:19 04/26/19 15:19 04/26/19 15:19 Oxygen Devices in Use Now: None Appearance: Ms. Power is an average weight middle aged white female who is sitting up in bed. She is breathing comfortably on RA and appears to be in no acute distress. Eyes: No Scleral Icterus, PERRLA Ears/Nose/Mouth/Throat: NL Teeth, Lips, Gums, Clear Oropharnyx, Mucous Membranes Moist Neck: NL Appearance and Movements; NL JVP, Trachea Midline Respiratory: Symmetrical Chest Expansion and Respiratory Effort, - - bibasilar course rales Cardiovascular: NL Sounds; No Murmurs; No JVD, RRR, No Edema Abdominal: NL Sounds; No Tenderness; No Distention, No Hepatosplenomegaly Extremities: No Edema, No Clubbing, Cyanosis Neurological: Alert and Oriented x 3, NL Muscle Strength and Tone Result Diagrams: 04/26/19 05:30 04/26/19 05:30 Microbiology and Other Data: Microbiology 04/26/19 09:30 Legionella Urinary Antigen - Final Urine Negative Legionella Antigen Streptococcus pneumoniae Ag Screen - Final Negative S. pneumo Antigen Assess/Plan/Problems-Billing Assessment: 59 yof PMHx Raynaud's presents with cough, general malaise, intermittent fever, dx with pna 04/04 that did not respond to 2 courses of azithro, 1 course of doxy and atovaquone, found to have b/l infiltrates on CT chest. 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 Discharge when stable.
[2019-04-26] MEDS: methylPREDNISolone SOD 40 MG* 1 ML VIAL IV SCH (12:57)
--- NOTE | 2019-04-26 13:10 | CONS ---
CONSULTATION REPORT: DATE OF CONSULT: 04/26/19 PRIMARY CARE PROVIDER: Dr. Tanna Castillo. PROVIDER REQUESTING CONSULTATION: RAJINDER Reeder CONSULTING SERVICE: Infectious Disease. PROVIDER: Lobo Clay NP ATTENDING PROVIDER: Dr. Oscar Kiran.* (DICTATED BY LOBO CLAY NP) REASON FOR CONSULT: Abnormal chest CT after 1 month of treatment for pneumonia. IMPRESSION: 1. Abnormal chest CT with peripheral patchy opacities bilaterally. Differential includes fungal pneumonia, lung sarcoidosis, lung cancer, autoimmune disorder such as Abeba's disease or Churg-Carmen, septic emboli, community acquired pneumonia either viral or bacterial, or other lung pathology. The patient has received approximately a month's worth of antibiotics outpatient including azithromycin, doxycycline, atovaquone and is now on ceftriaxone. She has been afebrile while in the hospital with the exception of low-grade fever of 100.1 yesterday. She has no leukocytosis. CRP is elevated. Influenza A and B is negative. HIV negative. She reports a dry cough that is mostly nonproductive. She does report traveling to [place] in September and [place] in January. She reports night sweats with fatigue, and shortness of breath with exertion. RECOMMENDATIONS/PLAN: Recommend obtaining a transthoracic echocardiogram to rule out septic emboli. She has blood cultures pending at this time. A sputum culture should be obtained, if she is unable to produce a sputum sample on her own; we can consider an induced sputum. To assist in ruling out Abeba's disease and Churg-Carmen, we will get an ANCA and DOLLY. She should also have histoplasma antigen and cryptococcus antigens. Continue her on ceftriaxone at this time. Recommend considering a pulmonology consult. Further recommendations will be based on the patient's clinical course and further data collected. We will continue to follow along. HISTORY OF PRESENT ILLNESS: Ms. Power is a 59-year-old female with past medical history only significant for Raynaud's, otherwise healthy. She states that her daughter with a toddler visited from [place] approximately 1 month ago. At that time, she was feeling well. The toddler had had a cold. She continued to have fever, chills, some minimal weight loss; was seen by her primary care provider, and diagnosed with pneumonia. She completed 2 courses of azithromycin, 2 weeks of doxycycline and 4 days of atovaquone. She continued not feeling well, having fevers and chills daily with fevers of 101 to 102 for the last 2 weeks with associated night sweats, fatigue and dry cough. She has been taking Motrin for symptom control She continues to have a cough that is mostly dry with deep breaths, and shortness of breath with exertion. She typically runs 5 miles a day, but has been unable to even walk up a hill without shortness of breath. She began feeling worse over the last few weeks with dizziness and nausea more so in the morning that improves throughout the day. She has had a poor appetite, but has been eating and drinking. She also reports over the last week stiff neck and discomfort in her back and shoulder, headache in addition to nausea. She traveled to [place] in September and [place] in January. No other family members with similar symptoms other than her who had had cold around [place] and has recovered from that. Due to her continued symptoms, she presented to the emergency room for further evaluation. While in the emergency room, she had a chest CT showing bilateral airspace opacity with air bronchograms as well as peripheral patchy regions and ring- shaped opacities in bilateral lung suspicious for pneumonitis, possible atypical pneumonitis and mild mediastinal lymphadenopathy. CBC without leukocytosis. Noted to have mild hyponatremia, mildly elevated glucose, and CRP of 220. She had influenza A and B negative. HIV testing was negative. Urinalysis negative. While in the hospital, she continues to have no leukocytosis, and afebrile. She continues to feel unwell. Denies vomiting, diarrhea, constipation, urinary symptoms. Reports an occasional dry cough without sputum production, shortness of breath with exertion, and continues to have night sweats. Most of her other symptoms are starting to improve. She has been receiving IV fluids and IV antibiotics. PAST MEDICAL HISTORY: Raynaud's disease. PAST SURGICAL HISTORY: 1. Status post appendectomy. 2. Status post tonsillectomy. 3. Status post section x2. MEDICATIONS: Home medications: 1. Atovaquone 5 mL by mouth twice daily. 2. Albuterol HFA inhaler 2 puffs inhalation every 6 hours as needed for shortness of breath. 3. Azithromycin 1 tablet by mouth daily. Hospital medications: 1. Acetaminophen 650 mg by mouth every 4 hours as needed for pain. 2. Albuterol HFA inhaler 2 puffs inhalation every 6 hours as needed for shortness of breath. 3. Ceftriaxone 1 g IV every 24 hours. 4. Lovenox 40 mg subcutaneous daily. 5. Normal saline bolus. ALLERGIES: AMOXICILLIN caused vomiting. FAMILY HISTORY: Denies family history of recurrent or resistant infections such as tuberculosis. Denies family history of coronary artery disease. Son with a history of diabetes, Hodgkin's lymphoma, Kawasaki's, and sarcoidosis of the lungs. Father with a history of diabetes and maternal grandmother with a history of diabetes. SOCIAL HISTORY: She drinks 3 alcoholic beverages nightly. She is a former smoker, quitting 1 year ago. She smoked half-a-pack a day for 6 years. Denies recreational drug use. REVIEW OF SYSTEMS: I performed a 10-point review of systems. All the pertinent positives and negatives are mentioned under the history of present illness. The remaining review of systems are negative. PHYSICAL EXAM: Vital Signs: Temperature 99.8, heart rate 90, respiratory rate 18, O2 sat 92% on room air, blood pressure 96/55. General Appearance: The patient is alert, appears to be in no acute distress. Head: Normocephalic, atraumatic. Extraocular movements are intact. No subconjunctival hemorrhage. Moist mucous membranes. Neck is supple. There is no lymphadenopathy. She has no nuchal rigidity. Neurological: Alert and oriented x4. Cranial nerves II through XII are grossly intact. Cardiovascular: Regular rate and rhythm. S1 and S2 present. No murmurs, rubs, or gallops heard. Respiratory: There is no accessory muscle use. The lungs are clear to auscultation bilaterally. Abdomen : Bowel sounds present. Abdomen is soft, nontender, nondistended. Extremities : No lower extremity edema. DP and PT pulses are 2+ and symmetric. Musculoskeletal: No clubbing or cyanosis noted. She exhibits good strength in all extremities. No tenderness with palpation of the neck, back, or spine. She has no swollen or painful joints with movement. Psychological: Calm and cooperative. Skin: No rashes or abnormalities seen. DIAGNOSTIC STUDIES/LAB DATA: Sodium 133, potassium 3.9, chloride 98, CO2 of 26 , BUN 12, creatinine 0.68, glucose 117. White blood cell count 8.2, hemoglobin 11.8, hematocrit 35, platelet count 345. ESR at admission was greater than 120 and CRP 220.10. Influenza A and B negative. HIV negative. Urinalysis negative. Please see impression and recommendations outlined above. Recommendations have been discussed with RAJINDER Reeder. Thank you for asking us to see Ms. Power in consultation. The case has been discussed with my attending, Dr. Oscar Kiran, who agrees with the plan of care. Reviewed by ADOLFO ZAPATA 04/30/19 1237 [id number]/[facility] #: [id number] VICK
--- NOTE | 2019-04-26 15:07 | CONS ---
PULMONARY CONSULTATION REPORT: DATE OF CONSULT: 04/26/19 REQUESTED BY: RAJINDER Reeder. REASON FOR CONSULT: Evaluation of abnormal CT chest. HISTORY OF PRESENT ILLNESS: The patient is a 59-year-old female, former smoker , quit about a year ago. The patient presents for evaluation of shortness of breath. The patient has been evaluated for pneumonia recently. Around 03/28/19 , the patient started having palpitations for 4 to 5 days, worse at night. She was having generalized malaise. The patient usually is active and runs 5 miles and does 40 push-ups per day, which she was not able to do around that time. She went to primary care provider on 04/04/19 and was diagnosed with pneumonia and prescribed azithromycin, which she took a 5-day course. She did not have any improvement in symptoms, returned to the PCP and was tested for Lyme and was prescribed doxycycline for 2 weeks' duration. Her Lyme test was negative and therefore doxycycline was stopped, and azithromycin was continued for additional few days to have a 7-day course. She started feeling poorly with a fever of 102.4, chills, worsening shortness of breath, and dry cough and decided to come into the ED for further evaluation. The patient also reports inability to take deep breath and feels a tightness in the chest while taking deep breath. She also had a 5- pound weight loss in the past 2 weeks secondary to poor appetite. Also reports lightheadedness, bilateral leg weakness, aching , stiffness, and then soreness in the left shoulder, reports headache. The patient had traveled to [place] in September 2018, [place] in December 2018, and traveled to [place] in February 2019. The patient also reports having some construction happening in the house, which is a very old house from 1799s. The patient, however, reports no mold or fungal exposure. The patient had further evaluation in the ED, which included CBC which did not show significant leukocytosis. She was noted to have mild hyponatremia. CRP was elevated. She also had a chest x-ray and CT scan of the chest. I personally reviewed with the patient and her today - the patient noted to have multiple round opacities bilaterally with some central clearing and with some ring shaped opacities due to the central clearing. She is noted to have dense opacification or consolidation in the lower parts of the lungs bilaterally. These opacities are mostly peripheral. Mild lymphadenopathy was noted, no pleural effusion was noted. PAST MEDICAL HISTORY: Raynaud's. PAST SURGICAL HISTORY: Appendectomy, tonsillectomy, x2. HOME MEDICATIONS: 1. Albuterol. 2. Levaquin. 3. Azithromycin. DRUG ALLERGIES: AMOXICILLIN. FAMILY HISTORY: One son with diabetes, sarcoidosis, Hodgkin lymphoma, and autoimmune disease that occurred after chemotherapy for lymphoma. Father has type 2 diabetes, maternal grandmother with diabetes. No family history of lung disease, cardiovascular disease, or CVA. SOCIAL HISTORY: The patient quit smoking 1 year ago, smoked for 5 to 6 years and approximately less than a half per day. She drinks 3 alcoholic beverages per night. 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 REVIEW OF SYSTEMS: All 14 systems reviewed and as per HPI. PHYSICAL EXAM: The patient in mild distress secondary to shortness of breath. Vital Signs: Temperature 99.5, pulse 78 beats per minute, respiratory 18 per minute, O2 sat 95% on room air, blood pressure 99/54. HEENT: Pupils equal, reactive to light. Mucous membranes moist. Lungs: Diminished. Air entry bilaterally. Rhonchi present, some crackles at bases posteriorly. Cardiovascular: S1, S2 present. Abdomen: Soft, nontender, nondistended. Bowel sounds present. Extremities: Normal range of motion. Skin: No rash or bruise. DIAGNOSTIC STUDIES/LAB DATA: WBC count 8.2, hemoglobin 11.8, hematocrit 35, platelet count 345. Sodium 133, potassium 3.9, chloride 98, bicarb 26, BUN 12, creatinine 0.68. Lactic acid within normal limits. CRP is elevated at 220. Influenza A and B are negative. HIV nonreactive CT scan of the chest as described above in HPI. Echocardiogram did not reveal any evidence of valvular vegetations. Systolic function is normal. IMPRESSION/RECOMMENDATION: 59-year-old female with no other past medical history other than Raynaud's, family history of sarcoidosis and lymphoma, presents with worsening shortness of breath and after failing outpatient treatment for pneumonia. The patient also with high fevers. Family members with viral syndrome, monocytosis infection. The patient also with recent travel to areas with endemic fungi. Differential is broad in her case but I think it is most likely to be cryptogenic organizing pneumonia or bronchiolitis obliterans with organizing pneumonia given radiological findings. Fungal pneumonia is still in the differential. She is currently not on antibiotics, was started on azithromycin. She was seen by infectious disease specialist. I would start the patient on Solu-Medrol for management of her cryptogenic organizing pneumonia. Thank you for allowing me to participate in care of your patient. Will follow up with you. I do not think the patient needs bronchoscopy at this time. [id number]/[facility] #: [id number] VICK
[2019-04-26] MEDS: cefTRIAXone(*) 1 GM in NS 0.9% 50 ML* 50 ML IVPB SCH (18:19)
[2019-04-26] MEDS: guaiFENesin ER TAB 600 MG PO SCH (21:16)
[2019-04-27] MEDS: methylPREDNISolone SOD 40 MG* 1 ML VIAL IV SCH ×2 (01:00→12:52)
[2019-04-27] MEDS ORDERED: NS 0.9% 250 ML* 250 ML IV ONE (07:46)
[2019-04-27] MEDS: guaiFENesin ER TAB 600 MG PO SCH ×2 (08:05→21:44)
[2019-04-27] MEDS ORDERED: NS 0.9% 1000 ML** 1,000 ML IV SCH (10:45)
--- NOTE | 2019-04-27 11:02 | PN ---
Progress Note - Progress Note Date of Service: 04/27/19 SOAP: Subjective: CC: Abnormal chest CT. HPI: Ms. Power is a 59 yo female with no significant PMH. Denies fever, chills , nausea, vomiting, or diarrhea. Low grade fever yesterday. She reports continued shortness of breath with exertion, she was noted to be hypoxic with ambulation this AM. She is eating and drinking well. Objective: Vital Signs - 8 hr 04/27/19 04/27/19 04/27/19 03:03 07:15 08:00 Temperature 97.3 F 97.5 F Pulse Rate 74 75 Respiratory 20 18 16 Rate Blood Pressure 121/60 92/54 (mmHg) O2 Sat by Pulse 95 92 92 Oximetry 04/27/19 04/27/19 04/27/19 09:12 10:39 10:48 Temperature Pulse Rate 80 Respiratory Rate Blood Pressure 104/58 (mmHg) O2 Sat by Pulse 92 84 91 Oximetry Physical Exam: General: NAD, sitting up in bed Neurological: Alert and Oriented x4 HEENT: Moist MM, no thrush Cardiovascular: Heart rate regular Respiratory: Lung sounds clear in upper lobes and fine crackles in the bases Abdominal: Bowel sounds present; ABD soft, non tender and non distended Skin: No rash Laboratory Last Values WBC 8.2 10^3/uL (3.5-10.8) 04/26/19 05:30 RBC 3.93 10^6 /uL (3.70-4.87) 04/26/19 05:30 Hgb 11.8 g/dL (12.0-16.0) L 04/26/19 05:30 Hct 35 % (35-47) 04/26/19 05:30 MCV 88 fL (80-97) 04/26/19 05:30 MCH 30 pg (27-31) 04/26/19 05:30 MCHC 34 g/dL (31-36) 04/26/19 05:30 RDW 12 % (10-15) 04/26/19 05:30 Plt Count 345 10^3/uL (150-450) 04/26/19 05:30 MPV 7.6 fL (7.4-10.4) 04/26/19 05:30 Neut % (Auto) 68.6 % 04/26/19 05:30 Lymph % (Auto) 15.8 % 04/26/19 05:30 [place] % (Auto) 8.4 % 04/26/19 05:30 Eos % (Auto) 6.9 % 04/26/19 05:30 Baso % (Auto) 0.3 % 04/26/19 05:30 Absolute Neuts (auto) 5.7 10^3/ul (1.5-7.7) 04/26/19 05:30 Absolute Lymphs (auto) 1.3 10^3/ul (1.0-4.8) 04/26/19 05:30 Absolute Monos (auto) 0.7 10^3/ul (0-0.8) 04/26/19 05:30 Absolute Eos (auto) 0.6 10^3/ul (0-0.6) 04/26/19 05:30 Absolute Basos (auto) 0.0 10^3/ul (0-0.2) 04/26/19 05:30 Absolute Nucleated RBC 0.0 10^3/ul 04/26/19 05:30 Nucleated RBC % 0.0 04/26/19 05:30 ESR > 120 mm/Hr (0-29) H 04/25/19 18:40 INR (Anticoag Therapy) 1.23 (0.82-1.09) H 04/25/19 18:40 APTT 32.9 seconds (26.0-38.0) 04/25/19 18:40 Fibrinogen 888.5 mg/dL (110.8-404.3) H 04/25/19 18:40 Sodium 133 mmol/L (135-145) L 04/26/19 05:30 Potassium 3.9 mmol/L (3.5-5.0) 04/26/19 05:30 Chloride 98 mmol/L (101-111) L 04/26/19 05:30 Carbon Dioxide 26 mmol/L (22-32) 04/26/19 05:30 Anion Gap 9 mmol/L (2-11) 04/26/19 05:30 BUN 12 mg/dL (6-24) 04/26/19 05:30 Creatinine 0.68 mg/dL (0.51-0.95) 04/26/19 05:30 Est GFR ( Amer) 107.2 (>60) 04/26/19 05:30 Est GFR (Non-Af Amer) 88.6 (>60) 04/26/19 05:30 BUN/Creatinine Ratio 17.6 (8-20) 04/26/19 05:30 Glucose 117 mg/dL (70-100) H 04/26/19 05:30 Lactic Acid 0.8 mmol/L (0.5-2.0) 04/25/19 21:34 Calcium 8.7 mg/dL (8.6-10.3) 04/26/19 05:30 Total Bilirubin 0.40 mg/dL (0.2-1.0) 04/25/19 18:40 AST 17 U/L (13-39) 04/25/19 18:40 ALT 16 U/L (7-52) 04/25/19 18:40 Alkaline Phosphatase 97 U/L (34-104) 04/25/19 18:40 Total Creatine Kinase 34 U/L (10-223) 04/25/19 18:40 Troponin I 0.01 ng/mL (<0.03) 04/25/19 18:40 C-Reactive Protein 220.10 mg/L (<8.01) H 04/25/19 18:40 B-Natriuretic Peptide 27 pg/mL (<=100) 04/25/19 18:40 Total Protein 6.8 g/dL (6.4-8.9) 04/25/19 18:40 Albumin 3.4 g/dL (3.2-5.2) 04/25/19 18:40 Globulin 3.4 g/dL (2-4) 04/25/19 18:40 Albumin/Globulin Ratio 1.0 (1-3) 04/25/19 18:40 Urine Color Yellow 04/25/19 18:00 Urine Appearance Clear 04/25/19 18:00 Urine pH 5.0 (5-9) 04/25/19 18:00 Ur Specific [place] 1.011 (1.010-1.030) 04/25/19 18:00 Urine Protein Negative (Negative) 04/25/19 18:00 Urine Ketones 1+ (Negative) A 04/25/19 18:00 Urine Blood Negative (Negative) 04/25/19 18:00 Urine Nitrate Negative (Negative) 04/25/19 18:00 Urine Bilirubin Negative (Negative) 04/25/19 18:00 Urine Urobilinogen Negative (Negative) 04/25/19 18:00 Ur Leukocyte Esterase Negative (Negative) 04/25/19 18:00 Urine Glucose Negative (Negative) 04/25/19 18:00 HIV 1&2 Ab/P24 Ag 4thGn Nonreactive (Nonreactive) 04/25/19 21:34 Influenza A (Rapid) Negative (Negative) 04/25/19 18:10 Influenza B (Rapid) Negative (Negative) 04/25/19 18:10 Microbiology 04/25/19 18:40 Aerobic Blood Culture - Preliminary Blood Venous No Growth Day 1 Anaerobic Blood Culture - Preliminary No Growth Day 1 04/25/19 18:40 Aerobic Blood Culture - Preliminary Blood Venous No Growth Day 1 Anaerobic Blood Culture - Preliminary No Growth Day 1 04/26/19 09:30 Legionella Urinary Antigen - Final Urine Negative Legionella Antigen Streptococcus pneumoniae Ag Screen - Final Negative S. pneumo Antigen Assessment: 1. Abnormal chest CT. Afebrile, no leukocytosis, elevated CRP. Urine antigens for S. pneumo and legionellla negative. Has not been able to produce a sputum sample. HIV negative. Broad differential at this time, includes: pneumonia, SOCIAL MEDIA MARKETER/ BOOP, septic emboli, fungal PNA, autoimmune lung disease, and malignancy. Low suspicion for septic emboli as she is not bacteremic, TTE with no signs of vegetation. She was started on steroids yesterday, repots some improvement in symptoms. HIV negative, low suspicion for pneumocystis PNA. Plan: Continue ceftriaxone for now. Recommend monitoring her for another day in the setting of hypoxia and shortness of breath with ambulation this morning. Will order an induced sputum. Will also get a CRP in the morning.
--- NOTE | 2019-04-27 12:11 | PN ---
Subjective Date of Service: 04/27/19 Interval History: Ms. Power states she is feeling better today. She reports night sweats x2 overnight, but no fevers. She c/o dizziness, lightheadedness, but notes that this has improved since fluid administration. She continues to have a cough. She has no other complaints to today. The patient later went for a walk around the unit and became hypoxic into the 80 's, requiring oxygen. She is currently resting on 2L O2. Objective Active Medications: Acetaminophen (Tylenol Tab*) 650 mg PO Q4H PRN PRN Reason: mild to moderate pain Albuterol (Ventolin Hfa Inhaler*) 2 puff INH Q6H PRN PRN Reason: SHORTNESS OF BREATH Enoxaparin Sodium (Lovenox(*)) 40 mg SUBCUT Q24H [facility] Last Admin: 04/26/19 21:16 Dose: 40 mg Guaifenesin (Mucinex*) 600 mg PO BID [facility] Last Admin: 04/27/19 08:05 Dose: 600 mg Ceftriaxone Sodium 1 gm/ (Sodium Chloride) 50 mls @ 100 mls/hr IVPB Q24H [facility] Last Admin: 04/26/19 18:19 Dose: 100 mls/hr Sodium Chloride (Ns 0.9% 1000 Ml) 1,000 mls @ 125 mls/hr IV PER RATE [facility] Stop: 04/28/19 18:44 Last Admin: 04/27/19 10:59 Dose: 125 mls/hr Methylprednisolone Sodium Succinate (Solu-Medrol 40 Mg) 40 mg IV Q12H [facility] Last Admin: 04/27/19 01:00 Dose: 40 mg Vital Signs: Temp Pulse Resp BP Pulse Ox 97.7 F 75 22 108/62 94 04/27/19 11:11 04/27/19 11:11 04/27/19 11:11 04/27/19 11:11 04/27/19 11:11 Oxygen Devices in Use Now: None Appearance: Ms. Power is an average weight, middle-aged female who is sitting up in bed. She is breathing comfortably on room air and appears to be in no acute distress. Result Diagrams: 04/26/19 05:30 04/26/19 05:30 Microbiology and Other Data: Microbiology 04/26/19 09:30 Legionella Urinary Antigen - Final Urine Negative Legionella Antigen Streptococcus pneumoniae Ag Screen - Final Negative S. pneumo Antigen Assess/Plan/Problems-Billing Assessment: 59 yof PMHx Raynaud's presents with cough, general malaise, intermittent fever, dx with pna 04/04 that did not respond to 2 courses of azithro, 1 course of doxy and atovaquone, found to have b/l infiltrates on CT chest. 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 Discharge when stable.
[2019-04-27 16:52] LABS: Procalcitonin, S <0.10 ng/mL (<=0.15)
[2019-04-27] MEDS: cefTRIAXone(*) 1 GM in NS 0.9% 50 ML* 50 ML IVPB SCH (18:31)
[2019-04-27] MEDS: Enoxaparin(*) 40 MG/0.4 ML SYR SUBCUT SCH (21:45)
[2019-04-28] MEDS: methylPREDNISolone SOD 40 MG* 1 ML VIAL IV SCH ×3 (05:48→17:19)
[2019-04-28] MEDS: guaiFENesin ER TAB 600 MG PO SCH ×2 (09:45→20:21)
--- NOTE | 2019-04-28 09:46 | PN ---
Progress Note - Progress Note Date of Service: 04/28/19 SOAP: Subjective: CC: shortness of breath HPI:59 year old woman with 6 weeks dyspnea, cough, fever, pulmonary infiltrates. Energy, dyspnea, cough improving. No fever, rash, or diarrhea. Appetite ok. Desaturated with walking yesterday. Objective: Vital Signs Temp 36.6 C 04/28/19 07:15 Pulse 70 04/28/19 07:15 Resp 22 04/28/19 07:15 BP 123/71 04/28/19 07:15 Pulse Ox 98 04/28/19 07:15 Intake & Output 04/27/19 04/28/19 04/28/19 18:59 06:59 18:59 Intake Total 2120 1999 Output Total 1550 1500 Balance 570 500 Intake: IV Fluids 380 2000 NS 380 1999 Oral 1740 0 Output: Urine 1550 1500 Other: # Voids 2 Gen:awake, no distress HEENT: no thrush Heart:regular, no murmur Lungs:Clear no egophany or wheeze Abd:+BS NT ND soft Skin: no rash Laboratory Results - last 24 hr 04/25/19 04/26/19 04/28/19 21:35 05:30 06:13 C-Reactive Protein 71.89 H Procalcitonin <0.10 Anti-Nuclear Antibody 0.3 Proteinase 3 (PR3) < 0.2 Myeloperoxidase Ab < 0.2 Assessment: 1. chronic pneumonia, immunocompetent . ANCA and DOLLY negative. 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 Hypoxemia 3. PCN allergy Plan: 1. DC ceftriaxone, continue corticosteroids, follow O2 sat with ambulation today. We discussed that if not continued improvement that needle biopsy is a possibility which seems less likely that it will be needed as she is improving. 35 minutes floor time >50% face to face discussing possible diagnoses and next steps
--- NOTE | 2019-04-28 13:37 | PN ---
Subjective Date of Service: 04/28/19 Interval History: Ms. Power reports an episode of anxiety today that lead to feelings of hyperventilation. She states that deep breathing and supplemental oxygen helped. She reports mild dizziness this morning, but this has since subsided and is less severe than last 2 days. She denies fever, night sweats; she c/o difficulty with sleep last night, but unsure why. She has no other complaints today. Objective Active Medications: Acetaminophen (Tylenol Tab*) 650 mg PO Q4H PRN PRN Reason: mild to moderate pain Albuterol (Ventolin Hfa Inhaler*) 2 puff INH Q6H PRN PRN Reason: SHORTNESS OF BREATH Enoxaparin Sodium (Lovenox(*)) 40 mg SUBCUT Q24H [facility] Last Admin: 04/27/19 21:45 Dose: 40 mg Guaifenesin (Mucinex*) 600 mg PO BID [facility] Last Admin: 04/28/19 09:45 Dose: 600 mg Hydroxyzine HCl (Atarax Tab*) 10 mg PO Q6H PRN PRN Reason: ANXIETY Sodium Chloride (Ns 0.9% 1000 Ml) 1,000 mls @ 125 mls/hr IV PER RATE [facility] Stop: 04/28/19 18:44 Last Admin: 04/27/19 10:59 Dose: 125 mls/hr Methylprednisolone Sodium Succinate (Solu-Medrol 40 Mg) 40 mg IV 0530,1730 [facility] Last Admin: 04/28/19 05:49 Dose: 40 mg Vital Signs: Temp Pulse Resp BP Pulse Ox 98.0 F 75 18 114/64 97 04/28/19 11:15 04/28/19 11:15 04/28/19 11:15 04/28/19 11:15 04/28/19 11:15 Oxygen Devices in Use Now: Nasal Cannula Appearance: Mr. Power is a middle-aged white female who is sitting in a chair. She appears comfortable and in no acute distress. She is breathing comfortably on supplemental O2. Eyes: No Scleral Icterus, PERRLA Ears/Nose/Mouth/Throat: NL Teeth, Lips, Gums, Clear Oropharnyx, Mucous Membranes Moist Neck: NL Appearance and Movements; NL JVP, Trachea Midline Respiratory: Symmetrical Chest Expansion and Respiratory Effort, - - Fine bibasilar rales. Cardiovascular: NL Sounds; No Murmurs; No JVD, RRR, No Edema Abdominal: NL Sounds; No Tenderness; No Distention, No Hepatosplenomegaly Extremities: No Edema, No Clubbing, Cyanosis Neurological: Alert and Oriented x 3 Result Diagrams: 04/26/19 05:30 04/26/19 05:30 Microbiology and Other Data: Microbiology 04/26/19 09:30 Legionella Urinary Antigen - Final Urine Negative Legionella Antigen Streptococcus pneumoniae Ag Screen - Final Negative S. pneumo Antigen Assess/Plan/Problems-Billing Assessment: 59 yof PMHx Raynaud's presents with cough, general malaise, intermittent fever, dx with pna 04/04 that did not respond to 2 courses of azithro, 1 course of doxy and atovaquone, found to have b/l infiltrates on CT chest. 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 -suspect hypovolemia; resolved with IVF -stable overnight and today -monitor need for resumption of fluids (4) DVT prophylaxis Comment: -lovenox SQ (5) Full code status Status and Disposition: Inpatient. Discharge when stable.
[2019-04-28] MEDS: Enoxaparin(*) 40 MG/0.4 ML SYR SUBCUT SCH (20:22)
[2019-04-28] MEDS: hydrOXYzine HCL TAB* 10 MG PO PRN (20:22)
[2019-04-29] MEDS: methylPREDNISolone SOD 40 MG* 1 ML VIAL IV SCH (06:04)
[2019-04-29] MEDS: guaiFENesin ER TAB 600 MG PO SCH ×2 (09:25→22:15)
--- NOTE | 2019-04-29 09:53 | PN ---
Progress Note - Progress Note Date of Service: 04/29/19 SOAP: Subjective: CC: shortness of breath HPI: 59 year old woman with 6 weeks dyspnea, cough, fever, pulmonary infiltrates , headache. Breathing feels better, still sats low 90's on RA in the shower. Headache is gone for the first time in a month. Objective: Vital Signs Temp 36.6 C 04/29/19 03:56 Pulse 50 04/29/19 03:56 Resp 18 04/29/19 03:56 BP 127/73 04/29/19 03:56 Pulse Ox 100 04/29/19 03:56 Intake & Output 04/28/19 04/29/19 04/29/19 18:59 06:59 18:59 Intake Total 938 0 1080 Output Total 900 200 Balance 38 -200 1080 Intake: Oral 938 0 1080 Output: Urine 900 200 Other: Estimated Void Medium # Voids 2 Gen:awake, no distress HEENT: no thrush Heart:regular, no murmur Lungs:Clear no egophany or wheeze Abd:+BS NT ND soft Skin: no rash Laboratory Results - last 24 hr 04/26/19 09:30 Urine Histoplasma Ag Negative U Histoplasma Ag Index 0.00 Assessment: 1. chronic pneumonia, immunocompetent . ANCA and DOLLY negative. Diff dx includes TILE BURNER, probably less likely sarcoidosis, less likely infectious, no good reason for primary fungal pneumonia or reactivation of fungal infection. Histo Ag negative, crypto ag and Histo Ab pending. 2. Hypoxemia 3. PCN allergy Plan: 1. continue corticosteroids, can transition to prednisone 60 mg by mouth daily , follow O2 sat with ambulation today, should plan on home O2. Recheck CXR. More fungal studies pending.
--- NOTE | 2019-04-29 15:44 | PN ---
Subjective Date of Service: 04/29/19 Interval History: Reports feeling better.sob improved.reports almost passing out this morning and reports that it has happened before Objective Active Medications: Acetaminophen (Tylenol Tab*) 650 mg PO Q4H PRN PRN Reason: mild to moderate pain Albuterol (Ventolin Hfa Inhaler*) 2 puff INH Q6H PRN PRN Reason: SHORTNESS OF BREATH Enoxaparin Sodium (Lovenox(*)) 40 mg SUBCUT Q24H [facility] Last Admin: 04/28/19 20:22 Dose: 40 mg Guaifenesin (Mucinex*) 600 mg PO BID [facility] Last Admin: 04/29/19 09:25 Dose: 600 mg Hydroxyzine HCl (Atarax Tab*) 10 mg PO Q6H PRN PRN Reason: ANXIETY Last Admin: 04/28/19 20:22 Dose: 10 mg Prednisone (Deltasone 20 Mg Tab) 60 mg PO DAILY [facility] Vital Signs - 8 hr 04/29/19 08:00 Respiratory 22 Rate O2 Sat by Pulse 98 Oximetry Oxygen Devices in Use Now: Nasal Cannula Eyes: No Scleral Icterus Ears/Nose/Mouth/Throat: NL Teeth, Lips, Gums Neck: NL Appearance and Movements; NL JVP Respiratory: Symmetrical Chest Expansion and Respiratory Effort Cardiovascular: NL Sounds; No Murmurs; No JVD Abdominal: NL Sounds; No Tenderness; No Distention Extremities: No Edema Neurological: Alert and Oriented x 3 Result Diagrams: 04/26/19 05:30 04/26/19 05:30 Microbiology and Other Data: Microbiology 04/26/19 09:30 Legionella Urinary Antigen - Final Urine Negative Legionella Antigen Streptococcus pneumoniae Ag Screen - Final Negative S. pneumo Antigen Assess/Plan/Problems-Billing Assessment: 59 yof PMHx Raynaud's presents with cough, general malaise, intermittent fever, dx with pna 04/04 that did not respond to 2 courses of azithro, 1 course of doxy and atovaquone, found to have b/l infiltrates on CT chest. 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 DOLLY wnl.ANCa nl.Will check for Scleroderma,Mixed connective tissue dx,DALTON ( sarcoid ) Ca not high,ESR, INR elevated, lupus anticoag, antiphos ab for completion and r/o other associated autoimmune dx Fungal w.,u in progress PCP propylaxis while on steroids (2) Acute respiratory failure with hypoxia Current Visit: Yes Status: Acute Code(s): J96.01 - ACUTE RESPIRATORY FAILURE WITH HYPOXIA SNOMED Code(s): 04421635 Comment: -patient became hypoxic into 80's while ambulating and was started on supplemental O2 -likely result of current pulmonary illness -continue supplemental O2 and wean as able (3) DVT prophylaxis Current Visit: Yes Status: Acute Code(s): Z29.9 - ENCOUNTER FOR PROPHYLACTIC MEASURES, UNSPECIFIED SNOMED Code(s): 103505803 Comment: -lovenox SQ (4) Syncope Current Visit: Yes Status: Acute Code(s): R55 - SYNCOPE AND COLLAPSE SNOMED Code(s): 445078659 Comment: tele monitoring today pre syncope today multiple other episodes before CT from Mar 2019 reviewed ok Echo from few days ago reviewed no Will get carotid doppler, dizziness Status and Disposition: Inpatient. Discharge when stable.
[2019-04-29] MEDS: Sulfamethox/Trimethoprim SS 400/80* TAB PO SCH (17:48)
[2019-04-29] MEDS: Enoxaparin(*) 40 MG/0.4 ML SYR SUBCUT SCH (22:15)
[2019-04-29] MEDS: hydrOXYzine HCL TAB* 10 MG PO PRN (22:21)
[2019-04-30] MEDS ORDERED: Magnesium Sulfate 2 GM IV* 2 GM/50 ML BAG IVPB ONE (02:43)
--- NOTE | 2019-04-30 02:45 | PN ---
Hospitalist Progress Note Date of Service: 04/30/19 ON-CALL MD NOTE: Was notified by the RN: patient had 22 beats of Vtach, ordered Mg supplementation. Mg level to be checked with AM levels.
[2019-04-30 05:56] LABS: ABS Lymphocytes 1.9 10^3/ul (1.0-4.8); ABS Monocytes 0.6 10^3/ul (0-0.8); ABS Neutrophils 7.8 10^3/ul (1.5-7.7); Eosinophil % 0.1 %; Hematocrit 36 % (35-47); Hemoglobin 12.3 g/dL (12.0-16.0); Lymphocyte % 18.5 %; Mean Corpuscular HGB Conc 34 g/dL (31-36); Mean Corpuscular Hemoglobin 30 pg (27-31); Mean Corpuscular Volume 87 fL (80-97); Mean Platelet Volume 7.3 fL (7.4-10.4); Platelet Count 441 10^3/uL (150-450); Red Blood Count 4.11 10^6 /uL (3.70-4.87); Red Cell Distribution Width 12 % (10-15); White Blood Count 10.4 10^3/uL (3.5-10.8)
[2019-04-30 06:14] LABS: BUN/Creatinine Ratio 26.8 (8-20); Calcium 8.3 mg/dL (8.6-10.3); EGFR Non-African American 84.3 (>60); Potassium 4.1 mmol/L (3.5-5.0)
--- NOTE | 2019-04-30 08:43 | PN ---
Progress Note - Progress Note Date of Service: 04/30/19 Note: Pt was sitting on the toilet and suddenly felt like she was going to pass out. She lowered her head and pulled the cord for help but as no one came quickly she got up and walked to the edge of the bed. She still felt like she was going to pass out. An aide entered the room due to the gillespie being activated and lowered her into the bed. Nursing noted that her HR was bradycardic in the 30' s. I was notified and entered the room to find the patient pale and diaphoretic lying in bed. She was alert. She still felt lightheaded at the time of my evaluation. Her HR was bradycardic but regular, lungs are clear. I left the room to review medications and returned to the room about 2 minutes later and found the patient sitting up with improved color and not complaining of dizziness. HR has now returned to her baseline in the 70's. I suspect she had vasovagal syncope. Additionally, the patient had a run of 22 beats of VT last night. Hydroxyzine can cause QT prolongation and therefore will stop the hydoxyzine.
[2019-04-30] MEDS: guaiFENesin ER TAB 600 MG PO SCH ×2 (10:04→20:11)
[2019-04-30] MEDS: Sulfamethox/Trimethoprim SS 400/80* TAB PO SCH (10:05)
--- NOTE | 2019-04-30 13:45 | PN ---
Subjective Date of Service: 04/30/19 Interval History: Syncopal episode this am.Was on tele.Norberto to 30 during episode. Vasovagal.Also episode of Vtach 22 beats earlier .Recd Mg Objective Active Medications: Acetaminophen (Tylenol Tab*) 650 mg PO Q4H PRN PRN Reason: mild to moderate pain Albuterol (Ventolin Hfa Inhaler*) 2 puff INH Q6H PRN PRN Reason: SHORTNESS OF BREATH Enoxaparin Sodium (Lovenox(*)) 40 mg SUBCUT Q24H [facility] Last Admin: 04/29/19 22:15 Dose: 40 mg Guaifenesin (Mucinex*) 600 mg PO BID [facility] Last Admin: 04/30/19 10:04 Dose: 600 mg Prednisone (Deltasone 20 Mg Tab) 60 mg PO DAILY [facility] Last Admin: 04/30/19 10:04 Dose: 60 mg Trimethoprim/Sulfamethoxazole (Bactrim Ss 400/80 Tab*) 1 tab PO DAILY [facility] Last Admin: 04/30/19 10:05 Dose: 1 tab Vital Signs - 8 hr 04/30/19 04/30/19 07:28 08:33 Temperature 98.2 F Pulse Rate 62 56 Respiratory 16 22 Rate Blood Pressure 117/64 169/81 (mmHg) O2 Sat by Pulse 94 93 Oximetry Oxygen Devices in Use Now: None Eyes: No Scleral Icterus Ears/Nose/Mouth/Throat: NL Teeth, Lips, Gums Neck: NL Appearance and Movements; NL JVP Respiratory: Clear to Auscultation Cardiovascular: NL Sounds; No Murmurs; No JVD Abdominal: NL Sounds; No Tenderness; No Distention Extremities: No Edema Neurological: Alert and Oriented x 3 Result Diagrams: 04/30/19 05:47 04/30/19 05:47 Microbiology and Other Data: Microbiology 04/26/19 09:30 Legionella Urinary Antigen - Final Urine Negative Legionella Antigen Streptococcus pneumoniae Ag Screen - Final Negative S. pneumo Antigen Assess/Plan/Problems-Billing Assessment: 59 yof PMHx Raynaud's presents with cough, general malaise, intermittent fever, dx with pna 04/04 that did not respond to 2 courses of azithro, 1 course of doxy and atovaquone, found to have b/l infiltrates on CT chest. 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 DOLLY wnl.ANCa nl.Will check for Scleroderma,Mixed connective tissue dx,DALTON ( sarcoid ) Ca not high,ESR, INR elevated, lupus anticoag, antiphos ab for completion and r/o other associated autoimmune dx Fungal w.,u in progress PCP propylaxis while on steroids (2) Acute respiratory failure with hypoxia Current Visit: Yes Status: Acute Code(s): J96.01 - ACUTE RESPIRATORY FAILURE WITH HYPOXIA SNOMED Code(s): 01734011 Comment: -patient became hypoxic into 80's while ambulating and was started on supplemental O2 -likely result of current pulmonary illness -continue supplemental O2 and wean as able (3) Syncope Current Visit: Yes Status: Acute Code(s): R55 - SYNCOPE AND COLLAPSE SNOMED Code(s): 825266549 Comment: tele monitoring today syncope today loc 10 sec Prodromal symptoms prior to syncope.Has had it before also durign periods of physical stress/ illness. Pic c/w Vasovagal syncope. However somewhat short SD and had V tach overnight and then syncope, will request cardiology evaluation and also r/o short SD syndromes like LGL,WPW monitoring on Tele. May need outpt EP eval.Likely needs ischemic w/u.Mg ok. Requested consult with Dr Morrow multiple other episodes before CT brain from Mar 2019 reviewed ok Echo from few days ago reviewed no Carotid doppler ok (4) DVT prophylaxis Current Visit: Yes Status: Acute Code(s): Z29.9 - ENCOUNTER FOR PROPHYLACTIC MEASURES, UNSPECIFIED SNOMED Code(s): 046471579 Comment: -lovenox SQ Status and Disposition: Inpatient. Discharge when stable.
--- NOTE | 2019-04-30 14:33 | CONS ---
CC: Dr. Qureshi; Dr. Castillo CARDIOLOGY CONSULTATION: DATE OF CONSULT: 04/30/19 INDICATION FOR CONSULTATION: Syncope, bradycardia, ventricular tachycardia. HISTORY OF PRESENT ILLNESS: The patient is a 59-year-old female with a history of Raynaud's phenomen on, who was admitted to the hospital because of pneumonia. 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 She has a long history of syncopal episodes, likely vasovagal syncope. She describes multiple episod es where she had syncopal episodes associated with noxious stimuli either with having to urgently go to the bathroom or with pain episodes. The patient states that 2 of her recent episodes were associat ed with having to go to the bathroom in an airplane and being unable to get to the bathroom on time; the second one was she had a history of meniscal tear and was walking in her hallway and suddenly had a very painful left knee when she stepped on something awkwardly and then had a syncopal episode. The patient was admitted to the hospital here again because of pneumonia and shortness of breath with the diagnosis above. While she was here, she had a syncopal episode this morning. The patient stat es that she went to the bathroom and while she was on the toilet she felt as though she was going to pass out, she called for an attendant, they tried to get her back into bed, but had a syncopal episod e before she was able to lie down. She was on telemetry. Her threat monitoring analyst showed bradycardia d own to 35 beats per minute, no prolonged pauses. Of note, the patient did have a 21-beat run of ventricular tachycardia at a rate of 160 beats per min [place]. This occurred at 2 o'clock this morning. The patient does have a long history of palpitations that have not been caught on any monitors in the past. In speaking with the patient this morning, she actually feels well. She does have her cough and shor tness of breath. She denies any chest pain. She denies any lightheadedness. PAST MEDICAL HISTORY: Significant for Raynaud's phenomenon. She has no history of documented cardia c arrhythmias, no history of cardiac symptoms. She had a recent diagnosis of BOOP. PAST SURGICAL HISTORY: Appendectomy, tonsillectomy, x2. MEDICATIONS AT HOME: 1. Albuterol inhaler. 2. Atovaquone 5 mL b.i.d. ALLERGIES: AMOXICILLIN. FAMILY HISTORY: One of her sons has a history of Hodgkin's lymphoma, autoimmune disease. Father had type 2 diabetes. No history of early coronary artery disease or cardiac arrhythmias. SOCIAL HISTORY: She was a previous smoker. She quit 1 year ago. She was less than a half a pack a day smoker. She has 3 alcohol drinks per night. She is . She has 2 children. 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 She runs 5 miles on a regular basis. REVIEW OF SYSTEMS: Positive for shortness of breath. Positive for fevers. Negative for changes in b owel or bladder habits. Negative for change in weight. Other 12-point review is unremarkable. PHYSICAL EXAMINATION: Height is 5 feet, weight is 104 pounds, temperature 98.2, heart rate is 62, bl ood pressure 117/64, respiratory rate is 16, oxygen saturation 94% on room air. Sclerae anicteric. Oropharynx is pink without erythema. Carotids are 2+ without bruits. JVD is normal. Thyroid is norm al. Cardiac Exam: S1, S2, without any murmurs, rubs, or gallops. Lungs are clear to auscultation bi laterally. There is no dullness to percussion. Abdomen is soft, nontender, nondistended with normoa ctive bowel sounds. Extremities: Show no edema. She has 2+ pulses throughout. The patient is awak e, alert, and oriented. She moves all 4 extremities equally. DIAGNOSTIC STUDIES/LAB DATA: The patient's EKG this morning demonstrates sinus bradycardia at 53 cassy ts per minute. Her QT interval was 494, her corrected QT interval was 464. Again on telemetry, she does have a 21-beat run of ventricular tachycardia at a rate of 160 beats per minute. She has a docu mented rhythm strip when she had her syncopal episode with sinus bradycardia at 52 to 35 beats per mi nute. Laboratory studies today: Chemistries are within normal limits. BUN and creatinine are normal. Mag nesium is normal at 3. On admission on 04/25/19 her AST and ALT were normal. Troponin was normal. C-reactive protein was elevated at 220. CAT scan of her chest does show organizing pneumonia. IMPRESSION: A 59-year-old female who is in the hospital because of shortness of breath. She was ult imately diagnosed with bronchiolitis obliterans with organizing pneumonia and is treated appropriatel y by Pulmonary and Infectious Disease. While she is in the hospital, she did have a syncopal episode which clearly was vasovagal syncope, sh e has been having them her whole life. They are usually associated with noxious stimuli or pain. The patient did have a run of ventricular tachycardia. It was a 21-beat run of ventricular tachycard ia, 160 beats per minute, unclear what the etiology of that is. The patient did have an echocardiogram during this hospitalization, which showed normal LV size and s ystolic function, no significant valvular abnormalities. At this point, I am not exactly sure what the significance of the ventricular tachycardia is. At this point, I do not think any active treatment is necessary. I would not put this patient on bet a-joselito because of her recent pulmonary issues. As an outpatient, the patient may benefit from an ischemic workup with a stress test. Ultimately, I think the patient would need an MRI to rule out other infiltrative processes, perhaps s arcoidosis. I will see the patient in followup as an outpatient and make further recommendations at that time. [id number]/[facility] #: [id number]
[2019-04-30] MEDS: Enoxaparin(*) 40 MG/0.4 ML SYR SUBCUT SCH (20:12)
[2019-04-30] MEDS ORDERED: NS 0.9% 500 ML* 500 ML IV ONE (23:24)
--- NOTE | 2019-05-01 01:02 | PN ---
Hospitalist Progress Note Date of Service: 05/01/19 WALLPAPER SCRAPER MD NOTE: Was called for hypotension, gave one Liter bolus, after this hypotension resolved. Evaluated the patient at bedside, was sleeping, not in distress Easy to arouse, did not have any lightheadedness, no chest pain, no breathing trouble. Will continue to monitor.
[2019-05-01 05:52] LABS: Hematocrit 35 % (35-47); Hemoglobin 11.8 g/dL (12.0-16.0); Mean Corpuscular HGB Conc 34 g/dL (31-36); Mean Corpuscular Hemoglobin 30 pg (27-31); Mean Corpuscular Volume 87 fL (80-97); Mean Platelet Volume 7.1 fL (7.4-10.4); Platelet Count 395 10^3/uL (150-450); Red Blood Count 4.02 10^6 /uL (3.70-4.87); Red Cell Distribution Width 12 % (10-15); White Blood Count 9.4 10^3/uL (3.5-10.8)
[2019-05-01 06:12] LABS: ABS Eosinophils 0.1 10^3/ul (0-0.6); ABS Lymphocytes 2.8 10^3/ul (1.0-4.8); ABS Monocytes 0.8 10^3/ul (0-0.8); ABS Neutrophils 5.7 10^3/ul (1.5-7.7); Eosinophil % 1.5 %; Lymphocyte % 29.3 %
[2019-05-01 06:13] LABS: Calcium 8.2 mg/dL (8.6-10.3); EGFR African American 97.2 (>60); EGFR Non-African American 80.3 (>60); Potassium 3.8 mmol/L (3.5-5.0)
[2019-05-01] MEDS: guaiFENesin ER TAB 600 MG PO SCH (09:26)
[2019-05-01] MEDS: Sulfamethox/Trimethoprim SS 400/80* TAB PO SCH (09:26)
--- NOTE | 2019-05-01 12:57 | PN ---
Subjective Date of Service: 05/01/19 Interval History: Episode of BP in the 80s overnight, recd 1 l NS with improvement. Reports some light headedness. Also noted to have bradycardic episodes overnight to the 40s. Was planning discharge today but on walking even with 4l of oxygen, pt desaturated today. Later desaturated on ambulation with 6l of oxygen to the 80s , Desats to 83% and HR dropped to the 40s. Had to sit. Decided to keep in the hospital today. Family History: Unchanged from Admission Social History: Unchanged from Admission Past Medical History: Unchanged from Admission Objective Active Medications: Acetaminophen (Tylenol Tab*) 650 mg PO Q4H PRN PRN Reason: mild to moderate pain Albuterol (Ventolin Hfa Inhaler*) 2 puff INH Q6H PRN PRN Reason: SHORTNESS OF BREATH Enoxaparin Sodium (Lovenox(*)) 40 mg SUBCUT Q24H [facility] Last Admin: 04/30/19 20:12 Dose: 40 mg Prednisone (Deltasone 20 Mg Tab) 60 mg PO DAILY [facility] Last Admin: 05/01/19 09:26 Dose: 60 mg Oxygen Devices in Use Now: None, Nasal Cannula Eyes: No Scleral Icterus Ears/Nose/Mouth/Throat: NL Teeth, Lips, Gums Neck: NL Appearance and Movements; NL JVP Respiratory: Symmetrical Chest Expansion and Respiratory Effort Cardiovascular: NL Sounds; No Murmurs; No JVD Abdominal: NL Sounds; No Tenderness; No Distention Extremities: No Edema Skin: No Rash or Ulcers Neurological: Alert and Oriented x 3 Result Diagrams: 05/01/19 05:38 05/01/19 05:38 Microbiology and Other Data: Microbiology 04/26/19 09:30 Legionella Urinary Antigen - Final Urine Negative Legionella Antigen Streptococcus pneumoniae Ag Screen - Final Negative S. pneumo Antigen Assess/Plan/Problems-Billing Assessment: 59 yof PMHx Raynaud's presents with cough, general malaise, intermittent fever, dx with pna 04/04 that did not respond to 2 courses of azithro, 1 course of doxy and atovaquone, found to have b/l infiltrates on CT chest. 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 DOLLY wnl.ANCa nl.Will check for Scleroderma,Mixed connective tissue dx,DALTON ( sarcoid ) Ca not high,ESR, INR elevated, lupus anticoag, antiphos ab for completion and r/o other associated autoimmune dx Fungal w.,u in progress PCP propylaxis while on steroids.However all the arythmias seem to have been exacerbated after starting Bactrim.Coincidental versus Causal. Will hold today and see how she does tonight.Also previously was not on Tele when dizzy and now on Tele catching rhythm disturbances Pl see above.Desaturating on 6l on ambulation. Will continue to monitor in hospital and adjust steroids. Pt weighs 98 pounds .Later can be transitioned to 1 mg/kg to 0.7 mg/kg and lower when more stable. Will continue current dose for now ABG today (2) Acute respiratory failure with hypoxia Current Visit: Yes Status: Acute Code(s): J96.01 - ACUTE RESPIRATORY FAILURE WITH HYPOXIA SNOMED Code(s): 67829280 Comment: -patient became hypoxic into 80's while ambulating and was started on supplemental O2 -likely result of current pulmonary illness -continue supplemental O2 and wean as able (3) Syncope Current Visit: Yes Status: Acute Code(s): R55 - SYNCOPE AND COLLAPSE SNOMED Code(s): 349243924 Comment: tele monitoring today syncope yesterday loc 10 sec Prodromal symptoms prior to syncope.Has had it before also durign periods of physical stress/ illness. Pic c/w Vasovagal syncope. However somewhat short PA and had V tach and then syncope, cardiology evaluation requested and also r/o short PA syndromes like LGL,WPW monitoring on Tele. May need outpt EP eval.Likely needs ischemic w/u.Mg ok. CT brain from Mar 2019 reviewed ok Echo from few days ago reviewed no Carotid doppler ok Appreciate Dr Morrow input.Needs further ischemic eval as outpt and poss cardiac mri multiple other episodes before (4) DVT prophylaxis Current Visit: Yes Status: Acute Code(s): Z29.9 - ENCOUNTER FOR PROPHYLACTIC MEASURES, UNSPECIFIED SNOMED Code(s): 250731009 Comment: -lovenox SQ (5) V tach Current Visit: Yes Status: Acute Code(s): I47.2 - VENTRICULAR TACHYCARDIA SNOMED Code(s): 34134996 Comment: PCP propylaxis while on steroids.However all the arythmias seem to have been exacerbated after starting Bactrim.Coincidental versus Causal. Will hold today and see how she does tonight.Also previously was not on Tele when dizzy and had palpatations and now on Tele catching rhythm disturbances Bradycardia can be also related to hypoxia Status and Disposition: Inpatient. Discharge when stable.
[2019-05-01 17:31] LABS: Coccidiodes Complement Fix Negative (Negative); Coccidioides IgG Antibody Negative (Negative); Coccidioides IgM Antibody Negative (Negative)
[2019-05-01] MEDS ORDERED: Melatonin 3 MG TAB PO PRN (19:41)
[2019-05-01] MEDS: Enoxaparin(*) 40 MG/0.4 ML SYR SUBCUT SCH (21:55)
[2019-05-02 06:31] LABS: Hematocrit 36 % (35-47); Hemoglobin 12.3 g/dL (12.0-16.0); Mean Corpuscular HGB Conc 34 g/dL (31-36); Mean Corpuscular Hemoglobin 30 pg (27-31); Mean Corpuscular Volume 87 fL (80-97); Mean Platelet Volume 7.4 fL (7.4-10.4); Platelet Count 390 10^3/uL (150-450); Red Blood Count 4.13 10^6 /uL (3.70-4.87); Red Cell Distribution Width 12 % (10-15); White Blood Count 9.4 10^3/uL (3.5-10.8)
[2019-05-02 06:47] LABS: ABS Eosinophils 0.3 10^3/ul (0-0.6); ABS Monocytes 0.7 10^3/ul (0-0.8); ABS Neutrophils 5.2 10^3/ul (1.5-7.7); Eosinophil % 3.4 %; Lymphocyte % 32.3 %
[2019-05-02 06:48] LABS: BUN/Creatinine Ratio 23.6 (8-20); Calcium 8.4 mg/dL (8.6-10.3); EGFR African American 100.3 (>60); EGFR Non-African American 82.9 (>60); Potassium 3.7 mmol/L (3.5-5.0)
[2019-05-02 13:39] LABS: U1 RNP IgG Autoabs 0.2 U
--- NOTE | 2019-05-02 15:13 | PN ---
Progress Note - Progress Note Date of Service: 05/02/19 - Pulm f/u note Note: Pt seen and examined at bedside. Pt reports feeling better, SOB is improved, cough is dry, intermittent Active Medications Generic Name Dose Route Start Last Admin Trade Name Freq PRN Reason Stop Dose Admin Acetaminophen 650 mg 04/25/19 21:13 Tylenol Tab* PO Q4H PRN mild to moderate pain Albuterol 2 puff 04/25/19 21:16 Ventolin Hfa Inhaler* INH Q6H PRN SHORTNESS OF BREATH Enoxaparin Sodium 40 mg 04/25/19 22:00 05/01/19 21:55 Lovenox(*) SUBCUT 40 mg Q24H JOSE LUIS Administration Melatonin 3 mg 05/01/19 19:41 05/01/19 21:55 Melatonin PO 3 mg BEDTIME PRN Administration SLEEP Prednisone 60 mg 04/29/19 14:00 05/02/19 08:21 Deltasone 20 Mg Tab PO 60 mg DAILY JOSE LUIS Administration Vital Signs Temp Pulse Resp BP Pulse Ox 97.5 F 66 22 104/56 94 05/02/19 11:14 05/02/19 11:14 05/02/19 11:14 05/02/19 11:14 05/02/19 11:14 O/E: Pt in NAD HEENT: PERRLA, no JVD Lungs: Good a/e b/l, no wheeze or crackles CVS: S1, S2+ Abd: Soft, BS+ Ext: Normal ROM Skin: no rash Neuro: No focal deficits Laboratory Results - last 24 hr 04/26/19 04/29/19 04/29/19 05:30 17:18 17:18 WBC RBC Hgb Hct MCV MCH MCHC RDW Plt Count MPV Neut % (Auto) Lymph % (Auto) Gentry % (Auto) Eos % (Auto) Baso % (Auto) Absolute Neuts (auto) Absolute Lymphs (auto) Absolute Monos (auto) Absolute Eos (auto) Absolute Basos (auto) Absolute Nucleated RBC Nucleated RBC % Sodium Potassium Chloride Carbon Dioxide Anion Gap BUN Creatinine Est GFR ( Amer) Est GFR (Non-Af Amer) BUN/Creatinine Ratio Glucose Calcium Scl-70 Scleroderma Ab <0.2 U1-nRNP Antibody 0.2 Glomerular Base Memb Ab <0.2 Coccidioides Ab (CF) Negative Coccidioides IgG Ab Negative Coccidioides IgM Ab Negative 05/02/19 05/02/19 06:16 06:16 WBC 9.4 RBC 4.13 Hgb 12.3 Hct 36 MCV 87 MCH 30 MCHC 34 RDW 12 Plt Count 390 MPV 7.4 Neut % (Auto) 56.2 Lymph % (Auto) 32.3 Gentry % (Auto) 7.8 Eos % (Auto) 3.4 Baso % (Auto) 0.3 Absolute Neuts (auto) 5.2 Absolute Lymphs (auto) 3.0 Absolute Monos (auto) 0.7 Absolute Eos (auto) 0.3 Absolute Basos (auto) 0.0 Absolute Nucleated RBC 0.0 Nucleated RBC % 0.0 Sodium 138 Potassium 3.7 Chloride 105 Carbon Dioxide 26 Anion Gap 7 BUN 17 Creatinine 0.72 Est GFR ( Amer) 100.3 Est GFR (Non-Af Amer) 82.9 BUN/Creatinine Ratio 23.6 H Glucose 90 Calcium 8.4 L Scl-70 Scleroderma Ab U1-nRNP Antibody Glomerular Base Memb Ab Coccidioides Ab (CF) Coccidioides IgG Ab Coccidioides IgM Ab I/R: 59 y o f a/w fever, SOB, found to have scattered air space opacities and dense consolidations at bases radiologically and clinically suggestive of BOOP/ 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
[2019-05-02 16:58] VITALS: BP 98/58
--- NOTE | 2019-05-03 01:31 | DS ---
DISCHARGE SUMMARY: DATE OF ADMISSION: 04/25/19 DATE OF DISCHARGE: 05/02/19 PRIMARY DIAGNOSES: 1. 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 2. Acute respiratory failure with hypoxia. 3. Syncope. 4. Ventricular tachycardia. HOSPITAL COURSE: A 59-year-old female with past medical history of Raynaud's, came into the ER with complaints of persistent pneumonia and significant shortness of breath. The patient has also had palpitations on and off and has had syncopal episodes during stressful times and illness in the past. The patient prior to this is very active, runs 5 miles a day and does 40 push-ups and was unable to walk without getting short of breath. The patient was initially treated for pneumonia, was given azithromycin as an outpatient. The patient's condition did not improve, was tested for Lyme and then prescribed doxycycline for 2 weeks and her Lyme test was eventually noted to be negative. There was some concern for babesiosis and was started on atovaquone. When the patient came to the ER, the patient had T-max of 102.4 and continued to be short of breath despite and failing multiple antibiotic regimens as an outpatient. The patient had also recently traveled to [place] in September, [place] in December, and [place] in February. When the patient came to the ER, the patient's CRP was noted to be 220. The patient had CT of the chest suggestive of bilateral air-space opacity with air bronchograms as well as peripheral patchy regions and ring-shaped opacities in the bilateral lungs suspicious for pneumonitis, possible atypical pneumonitis with differentials including cryptogenic organizing pneumonia, also was noted to have mild mediastinal lymphadenopathy. The patient was seen by Pulmonary, Dr. 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 The patient does have a family history of sarcoidosis and lymphoma. The patient was started on Solu- Medrol for treatment of her cryptogenic organizing pneumonia with improvement in her symptoms. The patient was also seen by Infectious Disease, Dr. Kiran, and recommended continuing the steroids, also an ANCA and DOLLY was obtained to rule out vasculitis and lupus and this later came back negative. Through her hospital course, an extended workup for autoimmune disease in light of her history of Raynaud's and family history of sarcoid has also been ordered. At the time of discharge, the patient's antibodies for scleroderma mixed connective tissue, DALTON for sarcoid, even though the calcium was not noted to be elevated, ESR, and lupus anticoagulant, antiphospholipid antibody workup is pending and the patient is to follow up the results of this with her primary care physician. Results should be back in a week. Fungal workup also in progress and currently pending. The patient was eventually transitioned to p.o. prednisone at 60 mg. The patient reports feeling significantly better than she was a couple of weeks ago. Still continues to get short of breath and desats on oxygen. However, has improved today. The patient is able to walk on 4 L of oxygen and maintain saturation of 92%. Yesterday, desated to the 80s even on 4 L of oxygen. The patient at this time has been advised to go home on 4 L of oxygen when she is ambulating and while sleeping and the patient appears to be maintaining her oxygen levels at rest but the patient to use it for any respiratory distress. The patient also was noted to be tachycardic and has had palpitations for a long time. The patient also reports syncopal episodes that have been sporadic, was monitored on tele. The patient had a syncopal episode during her hospital course and at that time, during her episode, the patient's heart rate was noted to be in the 30s and had LOC for about 10 seconds. The patient the prior night was noted to have a 21 beats of V-tach. Her magnesium level was noted to be normal. The patient did receive IV magnesium in the hospital as well. The patient was seen by Cardiology. The patient previously already had an echocardiogram which was not suggestive of any valvular abnormalities. No aortic stenosis. Carotid duplex was ordered which did not show any hemodynamically significant stenosis. On telemetry, the patient had that episode of ventricular tachycardia and periodically becomes bradycardic in the 40s when she is sleeping. This could be triggered by hypoxia and this was noted to be sinus. Dr. Morrow recommends the patient have an ischemic workup as an outpatient once her pulmonary status improves and to start with the stress test in light of her ventricular tachycardia. The patient may need further electrophysiology evaluation as an outpatient. The patient was noted to have short TN at once but TN has normalized and Cardiology does not think the patient has any concerns for short TN syndromes including LGL or WPW. Dr. Morrow also recommends possible cardiac MRI as an outpatient if she is noted to be positive for sarcoidosis. The patient will need outpatient cardiology evaluation. The patient's symptoms have significantly improved and the patient is eager to go home today. At time of discharge: 1. 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 Further recommendations for steroids per Dr. Qureshi. 2. The patient to follow up with Dr. Qureshi in 1 to 2 weeks. 3. The patient needs a repeat CT scan in 4 to 6 weeks. 4. Oxygen requirement will be reassessed in 2 weeks. 5. With respect to her syncope and tachycardia, the patient to follow up with Dr. Morrow as an outpatient. Needs further ischemic evaluation and further arrhythmia evaluation per Cardiology. 6. The patient to follow up on pending results as discussed above on her autoimmune workup with her PCP. 7. The patient to follow up with her primary care doctor within a week. 8. The patient advised to come back to the hospital if she has any further problems. 9. The patient to follow up with Infectious Disease, Dr. Kiran in 2 weeks. 10. The patient is being discharged on prednisone as tapered above and PCP prophylaxis with Bactrim. Vitals and labs noted to be stable at the time of discharge. Vitals: Temperature 97.9, pulse 54, respiratory rate 16. Oxygen saturation 94% on room air, 84% with ambulation without oxygen at the time of discharge and on 4 L of oxygen while ambulation and during sleep, the patient is able to maintain her saturations today. Blood pressure 104/58. The patient's blood pressure has been soft occasionally during hospital course. PHYSICAL EXAMINATION: HEENT: NC/AT. Heart: S1, S2 present. Regular at the time of exam. Lungs: Clear to auscultation. Abdomen: Soft. Extremities: No edema. Neuro: Alert, oriented x3. MEDICATIONS: 1. Ventolin inhaler p.r.n. 2. Prednisone 60 mg once a day for 1 week followed by 50 mg once a day for 1 week, followed by 40 mg once a day for 1 week. Further recommendations per Pulmonary. 3. Bactrim single strength 1 tab p.o. daily. LABS AT TIME OF DISCHARGE: WBC 9.4, hemoglobin 12.3, hematocrit 36, platelets noted to be 390. Sodium 138, potassium 3.7, chloride 105, CO2 of 26. BUN 17, creatinine 0.72. CONDITION: Stable. DISPOSITION: Home. TIME SPENT: Total time spent on discharge is equal to 80 minutes. [id number]/[facility] #: [id number] MTDD
[2019-05-03 11:44] LABS: LAC APTT 27 sec (25 - 37); LAC INR 1.1 (0.9-1.1); Prothrombin Time(LAC) 12.4 sec (9.4 - 12.5); Thrombin Time (Bovine), P 19.5 sec
[2019-05-03 12:57] LABS: Phospholipid Ab IgG < 9.4 GPL; Phospholipid Ab IgM, S 14.1 MPL
== END 2019-05-02 16:45 | disposition home or self-care (01) | DRG 142 ==
LOC: ED 16:36 → MED 21:13
PROVIDERS: ADMIT Internal Medicine; ATTEND Internal Medicine
DX: J84.116 Cryptogenic organizing pneumonia (principal); J96.01 Acute respiratory failure with hypoxia; I47.2 Ventricular tachycardia; I95.9 Hypotension, unspecified; R55 Syncope and collapse; R00.1 Bradycardia, unspecified; I73.00 Raynaud's syndrome without gangrene; Z99.81 Dependence on supplemental oxygen; Z87.891 Personal history of nicotine dependence; Z88.0 Allergy status to penicillin
CPT/HCPCS: 36415; 71046; 71250; 80048; 80053; 81003; 82164; 82550; 83516; 83520; 83605; 83735; 83880; 84145; 84484; 85025; 85384; 85610; 85613; 85652; 85730; 86038; 86140; 86147; 86235; 86635; 86698; 87040; 87385; 87389; 87899; 90686; 93005; 93306; 93880; 99284; A9270-GY; J0696; J1650; J2920; J3475; J7512